=== PATIENT | male | born 1965 | race African-American/Black ===

== ENCOUNTER 2018-11-15 20:42 | Inpatient (IN) | payer MEDICAID ==
[~2018-11-15] VITALS: Ht 190.5 cm; Wt 156.2 kg
[~2018-11-15 20:42] MED LIST: amlodipine; furosemide; hydrochlorothiazide; metoprolol; potassium
[2018-11-16] MEDS ORDERED: NITROGLYCERIN OINT 1GM/INCH UDPKT TD ONE (01:00)
[2018-11-16] MEDS ORDERED: FUROSEMIDE 40MG/4ML VIAL IV ONE (01:00)
[2018-11-16] MEDS ORDERED: ASPIRIN 325MG EC TABLET PO ONE (01:00)
[2018-11-16 01:32] LABS: BASOPHILS % 0.9 % (0.0-2.0); EOSINOPHILS % 4.3 % (0.0-5.0); HEMATOCRIT. 36.2 % (42.0-52.0); LYMPHOCYTES % 24.7 % (20.0-50.0); MEAN CORPUSCULAR HEMOGLOBIN 27.1 pg (28.0-32.0); MEAN CORPUSCULAR VOLUME 81.6 fL (80.0-94.0); MEAN PLATELET VOLUME 8.7 fl (7.4-10.4); MONOCYTES % 6.2 % (2.0-8.0); NEUTROPHILS % 63.9 % (40.0-76.0); PLATELET 249 x1000/uL (130-400); RED BLOOD CELL COUNT 4.44 mill/uL (4.7-6.1); RED CELL DISTRIBUTION WIDTH 14.4 % (11.6-14.6)
[2018-11-16 01:38] LABS: CHLORIDE 105 mEq/L (98-107)
[2018-11-16 01:42] LABS: INR 1.1; PROTHROMBIN TIME 10.6 sec (9.1-11.1)
[2018-11-16] MEDS ORDERED: POTASSIUM CHLORIDE 20MEQ TABLET SR PO SCH (01:58)
[2018-11-16 04:00] VITALS: BP 128/73
[2018-11-16] MEDS: FUROSEMIDE 40MG/4ML VIAL IVP SCH ×3 (08:00→18:10)
[2018-11-16] MEDS ORDERED: MORPHINE SULFATE 4 MG/ML CPJ (NOT FOR IM USE) IV PRN (08:00)
[2018-11-16] MEDS ORDERED: ONDANSETRON HCL 4MG/2ML INJ IV PRN (08:00)
[2018-11-16] MEDS ORDERED: ACETAMINOPHEN 325MG TABLET PO PRN (08:00)
[2018-11-16] MEDS ORDERED: HYDRALAZINE 20MG/ML VIAL IV PRN (08:00)
[2018-11-16 08:36] VITALS: BP 148/91
[2018-11-16] MEDS ORDERED: AMLODIPINE 5MG TABLET PO SCH (09:00)
[2018-11-16] MEDS ORDERED: HYDROCODONE/ACETAMINOPHEN 5/325MG TABLET PO PRN ×2 (10:30→10:45)
[2018-11-16] MEDS: ASPIRIN 81MG TABLET PO SCH (11:03)
[2018-11-16 11:16] VITALS: BP 148/91
[2018-11-16] MEDS: LOSARTAN POTASSIUM 50 MG TABLET PO SCH (11:28)
[2018-11-16 12:14] LABS: LDL CHOLESTEROL 149 mg/dL (5-100)
[2018-11-16 12:16] LABS: CREATINE KINASE 192 IU/L (39-308); HDL CHOLESTEROL 42 mg/dL (40-59)
[2018-11-16 12:18] LABS: CREATINE KINASE MB FRACTION 1.6 ng/mL (0.5-3.6)
[2018-11-16] MEDS: DILTIAZEM HCL 60MG TABLET PO SCH ×3 (12:51→23:12)
[2018-11-16] MEDS: ENOXAPARIN 30MG/0.3ML SYR SUBCUT SCH ×2 (14:55→22:08)
[2018-11-16 15:00] LABS: CLARITY URINE CLEAR (CLEAR); COLOR URINE YELLOW (YELLOW); KETONES URINE NEGATIVE (NEGATIVE); LEUKOCYTE ESTERASE URINE NEGATIVE (NEGATIVE); NITRITE URINE NEGATIVE (NEGATIVE); OCCULT BLOOD URINE NEGATIVE (NEGATIVE); PROTEIN URINE NEGATIVE (NEGATIVE); SPECIFIC GRAVITY URINE 1.005 (1.005-1.030); UROBILINOGEN URINE 0.2 E.U./dL (0.2-1.0)
[2018-11-16 15:02] LABS: *AMPHETAMINES SCREEN URINE NEGATIVE (NEGATIVE); *BARBITURATES SCREEN URINE NEGATIVE (NEGATIVE); *BENZODIAZEPINES SCREEN URINE NEGATIVE (NEGATIVE); *COCAINE SCREEN URINE NEGATIVE (NEGATIVE); METHADONE URINE SCREEN NEGATIVE (NEGATIVE); OPIATES URINE SCREEN NEGATIVE (NEGATIVE)
[2018-11-16 15:03] LABS: CANNABINOID URINE SCREEN NEGATIVE (NEGATIVE); PHENCYCLIDINE URINE SCREEN NEGATIVE (NEGATIVE)
[2018-11-16] MEDS ORDERED: IBUP-2271 MT (15:15)
[2018-11-16] MEDS ORDERED: GARL1000 PO (15:15)
[2018-11-16] MEDS ORDERED: ASPI-1159 PO (15:15)
[2018-11-16] MEDS ORDERED: GARL10005 PO (15:15)
[2018-11-16] MEDS ORDERED: OMEP1CAP25 PO (15:15)
[2018-11-16] MEDS ORDERED: HYDR12.54 PO (15:15)
[2018-11-16] MEDS ORDERED: POTA8TAB4 PO (15:15)
[2018-11-16] MEDS ORDERED: LOSA-20 PO (15:15)
[2018-11-16] MEDS ORDERED: ATOR20TA65 PO (15:15)
[2018-11-16 16:00] VITALS: BP 149/83
[2018-11-16] MEDS ORDERED: INFLUENZA VIRUS VACCINE(AFLURIA) 0.5ML SYR IM ONE (16:30)
[2018-11-16] MEDS ORDERED: PNEUMOCOCCAL 23-VAL P-SAC VAC 0.5 ML IM ONE (18:00)
[2018-11-16] MEDS: OMEPRAZOLE 20MG CAPSULE EXTENDED RELEASE PO SCH (18:54)
[2018-11-16 20:00] VITALS: BP 146/88
[2018-11-16] MEDS ORDERED: ZOLPIDEM TARTRATE 5MG TABLET PO PRN (21:00)
[2018-11-17] VITALS: BP 149/89
[2018-11-17 04:00] VITALS: BP 128/73
[2018-11-17] MEDS: OMEPRAZOLE 20MG CAPSULE EXTENDED RELEASE PO SCH ×2 (06:06→16:27)
[2018-11-17] MEDS: DILTIAZEM HCL 60MG TABLET PO SCH (06:07)
[2018-11-17 06:15] LABS: BASOPHILS % 0.6 % (0.0-2.0); HEMATOCRIT. 34.6 % (42.0-52.0); HEMOGLOBIN. 11.5 g/dL (14.0-18.0); MEAN CORPUSCULAR HEMOGLOBIN 27.3 pg (28.0-32.0); MEAN CORPUSCULAR VOLUME 82.6 fL (80.0-94.0); MEAN PLATELET VOLUME 8.7 fl (7.4-10.4); NEUTROPHILS % 59.4 % (40.0-76.0); PLATELET 230 x1000/uL (130-400); RED CELL DISTRIBUTION WIDTH 14.9 % (11.6-14.6)
[2018-11-17] MEDS: FUROSEMIDE 40MG/4ML VIAL IVP SCH ×2 (06:36→16:28)
[2018-11-17 07:22] LABS: CHLORIDE 102 mEq/L (98-107)
[2018-11-17 08:02] VITALS: BP 141/84
[2018-11-17] MEDS ORDERED: POTASSIUM CHLORIDE 20MEQ TABLET SR PO SCH (09:00)
[2018-11-17] MEDS: LOSARTAN POTASSIUM 50 MG TABLET PO SCH (09:25)
[2018-11-17] MEDS: ASPIRIN 81MG TABLET PO SCH (09:26)
[2018-11-17] MEDS: ENOXAPARIN 30MG/0.3ML SYR SUBCUT SCH (09:27)
[2018-11-17] MEDS ORDERED: POTASSIUM CHLORIDE 20MEQ TABLET SR PO NR (10:15)
[2018-11-17 12:13] VITALS: BP 143/80
[2018-11-17] MEDS ORDERED: DILTIAZEM HCL 90MG TABLET PO SCH (14:00)
[2018-11-17] MEDS ORDERED: LIP40 PO (14:26)
[2018-11-17] MEDS ORDERED: DILT90TA2 PO ×2 (14:26→16:23)
[2018-11-17 16:19] VITALS: BP 139/72
[2018-11-17 16:41] VITALS: BP 139/72
[2018-11-17] MEDS ORDERED: ATORVASTATIN CALCIUM 40MG TABLET PO SCH (21:00)
== END 2018-11-17 18:30 | disposition home or self-care (01) | DRG 199 ==
LOC: ER 21:23 → 6WST 11-16 02:37 → EDBEDREQTM 11-16 02:39 → EDBEDREQ 11-16 02:39 → ENRESERV 11-16 07:30
PROVIDERS: ADMIT Internal Medicine; ATTEND Internal Medicine
DX: I16.0 Hypertensive urgency (principal); I50.41 Acute combined systolic (congestive) and diastolic (congestive) heart failure; E66.01 Morbid (severe) obesity due to excess calories; I24.8 Other forms of acute ischemic heart disease; Z68.41 Body mass index [BMI] 40.0-44.9, adult; E78.5 Hyperlipidemia, unspecified; D64.9 Anemia, unspecified; J45.909 Unspecified asthma, uncomplicated; R60.0 Localized edema; I10 Essential (primary) hypertension; E87.6 Hypokalemia; Z71.3 Dietary counseling and surveillance; I11.0 Hypertensive heart disease with heart failure
CPT/HCPCS: 36415; 71045; 80048; 80061; 80305; 82550; 82553; 83880; 84443; 84484; 90686; 90732; 93005; 93306; 93970; 96374; 99285; J1650; J1940

== ENCOUNTER 2019-10-04 11:32 | Inpatient (IN) | payer MEDICAID ==
[~2019-10-04] VITALS: Ht 193 cm; Wt 160.2 kg
[~2019-10-04 11:32] MED LIST changes: +ASPI-1497 PO; +DILT90TA2 PO; +GARL1000 PO; +LIP40 PO; +LOSA-20 PO; +OMEP1CAP25 PO; +POTA8TAB4 PO; -amlodipine; -furosemide; -hydrochlorothiazide; -metoprolol; -potassium
[2019-10-04] MEDS ORDERED: ASPIRIN 81MG TABLET PO ONE (12:30)
[2019-10-04] MEDS ORDERED: LABETALOL HCL 20MG/4ML CARPUJECT IV ONE (12:30)
[2019-10-04] MEDS ORDERED: LABETALOL 5MG/ML SYR 20 MG/4 ML SYRINGE IV ONE (12:45)
[2019-10-04 12:56] LABS: BASOPHILS % 0.5 % (0.0-2.0); CHLORIDE 105 mEq/L (98-107); EOSINOPHILS % 1.6 % (0.0-5.0); HEMATOCRIT. 32.6 % (42.0-52.0); HEMOGLOBIN. 10.8 g/dL (14.0-18.0); MEAN CORPUSCULAR HEMOGLOBIN 26.7 pg (28.0-32.0); MEAN CORPUSCULAR VOLUME 80.9 fL (80.0-94.0); MEAN PLATELET VOLUME 9.2 fl (7.4-10.4); MONOCYTES % 6.6 % (2.0-8.0); NEUTROPHILS % 77.3 % (40.0-76.0); PLATELET 222 x1000/uL (130-400); RED BLOOD CELL COUNT 4.02 mill/uL (4.7-6.1); RED CELL DISTRIBUTION WIDTH 15.3 % (11.6-14.6)
[2019-10-04] MEDS ORDERED: ACETAMINOPHEN 325MG TABLET PO ONE (13:15)
[2019-10-04] MEDS ORDERED: METOPROLOL TARTRATE 100MG TABLET PO ONE (15:45)
[2019-10-04] MEDS ORDERED: FUROSEMIDE 40MG/4ML VIAL IVP ONE (15:45)
[2019-10-04] MEDS ORDERED: CLONIDINE 0.1MG TABLET PO PRN (17:30)
[2019-10-04] MEDS: POTASSIUM CHLORIDE 20MEQ TABLET SR PO SCH (17:30)
[2019-10-04] MEDS ORDERED: DOCUSATE SODIUM 100MG CAPSULE PO PRN (17:30)
[2019-10-04] MEDS ORDERED: ACETAMINOPHEN 325MG TABLET PO PRN (17:30)
[2019-10-04] MEDS: ASPIRIN 81MG EC TABLET PO SCH (17:45)
[2019-10-04] MEDS ORDERED: POTASSIUM CHLORIDE INJ 40 MEQ in DEXT 5% WATER 250 ML IV NR (18:00)
[2019-10-04] MEDS ORDERED: ENOXAPARIN 40MG/0.4ML SYR SUBCUT NR (18:00)
[2019-10-04] MEDS ORDERED: DILTIAZEM HCL 120MG CAPSULE CD 24HR PO NR (18:30)
[2019-10-04] MEDS: HYDROCODONE/ACETAMINOPHEN 5/325MG TABLET PO PRN (18:56)
[2019-10-04 20:00] VITALS: BP 132/98
[2019-10-04 20:05] VITALS: BP 132/98
[2019-10-04] MEDS: MAGNESIUM/ALUMINUM HYDROXIDE/SIMETHICONE 30ML UDC PO PRN (20:40)
[2019-10-04] MEDS ORDERED: ZOLPIDEM TARTRATE 5MG TABLET PO PRN (21:00)
[2019-10-04] MEDS: AMOXICILLIN 500 MG CAPSULE PO SCH (21:43)
[2019-10-04] MEDS: ATORVASTATIN CALCIUM 40MG TABLET PO SCH (21:43)
[2019-10-04] MEDS ORDERED: ONDANSETRON HCL 4MG TABLET PO PRN (22:30)
[2019-10-04] MEDS: ONDANSETRON HCL 4MG/2ML INJ IV PRN (22:48)
[2019-10-05] VITALS: BP_SYST 117; BP_SYST 157; BP_DIAS 63; BP_DIAS 84
[2019-10-05 04:00] VITALS: BP 111/70
[2019-10-05 06:19] LABS: BASOPHILS % 0.6 % (0.0-2.0); EOSINOPHILS % 0.3 % (0.0-5.0); HEMATOCRIT. 30.7 % (42.0-52.0); HEMOGLOBIN. 10.3 g/dL (14.0-18.0); LYMPHOCYTES % 15.1 % (20.0-50.0); MEAN CORPUSCULAR HEMOGLOBIN 27.2 pg (28.0-32.0); MEAN CORPUSCULAR VOLUME 81.2 fL (80.0-94.0); MEAN PLATELET VOLUME 9.7 fl (7.4-10.4); MONOCYTES % 6.3 % (2.0-8.0); NEUTROPHILS % 77.7 % (40.0-76.0); PLATELET 215 x1000/uL (130-400); RED BLOOD CELL COUNT 3.79 mill/uL (4.7-6.1); RED CELL DISTRIBUTION WIDTH 15.1 % (11.6-14.6)
[2019-10-05] MEDS: AMOXICILLIN 500 MG CAPSULE PO SCH ×3 (06:33→21:01)
[2019-10-05] MEDS: MAGNESIUM/ALUMINUM HYDROXIDE/SIMETHICONE 30ML UDC PO PRN ×2 (06:40→17:11)
[2019-10-05 06:55] LABS: CHLORIDE 106 mEq/L (98-107)
[2019-10-05 07:00] LABS: PHOSPHORUS 5.2 mg/dL (2.5-4.9)
[2019-10-05 08:00] VITALS: BP 141/100
[2019-10-05] MEDS: IPRATROPIUM/ALBUTEROL 0.5-3(2.5)MG/3ML NEB HHN PRN ×3 (08:21→16:43)
[2019-10-05] MEDS ORDERED: ENOXAPARIN 40MG/0.4ML SYR SUBCUT SCH (09:00)
[2019-10-05] MEDS: ASPIRIN 81MG EC TABLET PO SCH (09:29)
[2019-10-05] MEDS: HYDROCODONE/ACETAMINOPHEN 5/325MG TABLET PO PRN (09:29)
[2019-10-05] MEDS: POTASSIUM CHLORIDE 20MEQ TABLET SR PO SCH (09:29)
[2019-10-05] MEDS: DILTIAZEM HCL 120MG CAPSULE CD 24HR PO SCH (09:30)
[2019-10-05] MEDS: PANTOPRAZOLE SODIUM 40 MG/VIAL IV SCH (09:31)
[2019-10-05 12:00] VITALS: BP 128/89
[2019-10-05] MEDS ORDERED: FUROSEMIDE 40MG/4ML VIAL IV SCH (12:45)
[2019-10-05] MEDS: LOSARTAN POTASSIUM 25 MG TABLET PO SCH (14:20)
[2019-10-05 16:00] VITALS: BP 137/99
[2019-10-05] MEDS: FUROSEMIDE 40MG/4ML VIAL IV SCH (17:11)
[2019-10-05] MEDS: ENOXAPARIN 150MG/ML SYR SUBCUT SCH (18:15)
[2019-10-05 18:19] LABS: PROTHROMBIN TIME 11.2 sec (9.6-11.0)
[2019-10-05 20:00] VITALS: BP 125/92
[2019-10-05] MEDS: ATORVASTATIN CALCIUM 40MG TABLET PO SCH (20:17)
[2019-10-05] MEDS: ONDANSETRON HCL 4MG/2ML INJ IV PRN (20:38)
[2019-10-05] MEDS: CARVEDILOL 6.25 MG TABLET PO SCH (21:03)
[2019-10-06] VITALS: BP 123/89
[2019-10-06] MEDS: IPRATROPIUM/ALBUTEROL 0.5-3(2.5)MG/3ML NEB HHN PRN ×2 (01:06→13:53)
[2019-10-06 04:00] VITALS: BP 118/81
[2019-10-06] MEDS: AMOXICILLIN 500 MG CAPSULE PO SCH ×2 (06:11→14:22)
[2019-10-06] MEDS: ENOXAPARIN 150MG/ML SYR SUBCUT SCH ×2 (06:12→17:43)
[2019-10-06] MEDS: FUROSEMIDE 40MG/4ML VIAL IV SCH ×2 (06:15→17:20)
[2019-10-06] MEDS: MAGNESIUM/ALUMINUM HYDROXIDE/SIMETHICONE 30ML UDC PO PRN (07:16)
[2019-10-06 07:20] LABS: BASOPHILS % 0.5 % (0.0-2.0); HEMATOCRIT. 31.1 % (42.0-52.0); HEMOGLOBIN. 10.2 g/dL (14.0-18.0); LYMPHOCYTES % 19.4 % (20.0-50.0); MEAN CORPUSCULAR HEMOGLOBIN 26.8 pg (28.0-32.0); MEAN CORPUSCULAR VOLUME 81.4 fL (80.0-94.0); MEAN PLATELET VOLUME 9.5 fl (7.4-10.4); NEUTROPHILS % 70.1 % (40.0-76.0); PLATELET 220 x1000/uL (130-400); RED BLOOD CELL COUNT 3.82 mill/uL (4.7-6.1); RED CELL DISTRIBUTION WIDTH 15.3 % (11.6-14.6)
[2019-10-06 08:00] VITALS: BP 137/99
[2019-10-06 08:00] LABS: CHLORIDE 103 mEq/L (98-107)
[2019-10-06] MEDS ORDERED: FUROSEMIDE 40MG/4ML VIAL IV SCH (09:00)
[2019-10-06] MEDS: PANTOPRAZOLE SODIUM 40 MG/VIAL IV SCH (09:08)
[2019-10-06] MEDS: POTASSIUM CHLORIDE 20MEQ TABLET SR PO SCH (09:09)
[2019-10-06] MEDS: CARVEDILOL 6.25 MG TABLET PO SCH (09:09)
[2019-10-06] MEDS: ASPIRIN 81MG EC TABLET PO SCH (09:09)
[2019-10-06] MEDS: LOSARTAN POTASSIUM 25 MG TABLET PO SCH (09:09)
[2019-10-06] MEDS: DILTIAZEM HCL 120MG CAPSULE CD 24HR PO SCH (09:10)
[2019-10-06 12:00] VITALS: BP 140/82
[2019-10-06] MEDS ORDERED: FURO-151 MT (12:44)
[2019-10-06] MEDS ORDERED: POTA20TA82 MT (12:44)
[2019-10-06] MEDS ORDERED: CARV12.545 MT (12:44)
[2019-10-06] MEDS ORDERED: APIX5TAB MT (12:44)
[2019-10-06 15:02] VITALS: BP 140/82
[2019-10-06 16:00] VITALS: BP 122/96
[2019-10-07] MEDS ORDERED: FAMOTIDINE 20MG TABLET PO SCH (09:00)
== END 2019-10-06 19:40 | disposition home or self-care (01) | DRG 201 ==
LOC: ER 11:32 → 7WST 15:34 → EDBEDREQ 15:37 → ENRESERV 19:03
PROVIDERS: ADMIT Internal Medicine; ATTEND Internal Medicine
DX: I48.91 Unspecified atrial fibrillation (principal); J96.00 Acute respiratory failure, unspecified whether with hypoxia or hypercapnia; I50.23 Acute on chronic systolic (congestive) heart failure; E46 Unspecified protein-calorie malnutrition; I42.9 Cardiomyopathy, unspecified; Z68.41 Body mass index [BMI] 40.0-44.9, adult; K92.1 Melena; D64.9 Anemia, unspecified; E66.9 Obesity, unspecified; F12.10 Cannabis abuse, uncomplicated; F17.200 Nicotine dependence, unspecified, uncomplicated; I11.0 Hypertensive heart disease with heart failure; E78.5 Hyperlipidemia, unspecified; E87.6 Hypokalemia; J45.909 Unspecified asthma, uncomplicated; K04.7 Periapical abscess without sinus; Z82.49 Family history of ischemic heart disease and other diseases of the circulatory system; Z87.01 Personal history of pneumonia (recurrent); Z79.82 Long term (current) use of aspirin; Z79.899 Other long term (current) drug therapy; Z71.3 Dietary counseling and surveillance; Z71.6 Tobacco abuse counseling
CPT/HCPCS: 36415; 71045; 80048; 80053; 80061; 83036; 83735; 83880; 84100; 84145; 84443; 84484; 85025; 87804; 93005; 93306; 93970; 94640; 99285; C9113; J1650; J1940; J2405; J3480; J3490; J7060

== ENCOUNTER 2019-10-24 07:37 | Inpatient (IN) | payer MEDICAID ==
[~2019-10-24] VITALS: Ht 185.4 cm; Wt 171.5 kg
[~2019-10-24 07:37] MED LIST changes: +APIX5TAB MT; +CARV12.545 MT; +FURO-151 MT; +POTA20TA82 MT; -POTA8TAB4 PO
[2019-10-24] MEDS ORDERED: MORPHINE SULFATE 4 MG/ML CPJ (NOT FOR IM USE) IV STA (08:47)
[2019-10-24 09:09] LABS: BASOPHILS % 0.6 % (0.0-2.0); EOSINOPHILS % 1.9 % (0.0-5.0); HEMATOCRIT. 30.7 % (42.0-52.0); HEMOGLOBIN. 10.2 g/dL (14.0-18.0); LYMPHOCYTES % 15.4 % (20.0-50.0); MEAN CORPUSCULAR VOLUME 81.6 fL (80.0-94.0); MONOCYTES % 6.6 % (2.0-8.0); NEUTROPHILS % 75.5 % (40.0-76.0); PLATELET 226 x1000/uL (130-400); RED BLOOD CELL COUNT 3.76 mill/uL (4.7-6.1); RED CELL DISTRIBUTION WIDTH 15.7 % (11.6-14.6)
[2019-10-24 09:16] LABS: CHLORIDE 106 mEq/L (98-107)
[2019-10-24 09:18] LABS: INR 1.1
[2019-10-24] MEDS ORDERED: ALBUTEROL (0.083%) 2.5MG/3ML NEB HHN STA (10:36)
[2019-10-24 10:41] LABS: CLARITY URINE CLEAR (CLEAR); COLOR URINE YELLOW (YELLOW); KETONES URINE NEGATIVE (NEGATIVE); LEUKOCYTE ESTERASE URINE NEGATIVE (NEGATIVE); NITRITE URINE NEGATIVE (NEGATIVE); OCCULT BLOOD URINE NEGATIVE (NEGATIVE); PH URINE 5.5 (4.5-8.0); PROTEIN URINE 2+ (NEGATIVE); SPECIFIC GRAVITY URINE 1.023 (1.005-1.030); UROBILINOGEN URINE 0.2 E.U./dL (0.2-1.0)
[2019-10-24] MEDS ORDERED: KETOROLAC 30MG/ML VIAL IV ONE (10:45)
[2019-10-24] MEDS ORDERED: HYDRALAZINE 20MG/ML VIAL IV ONE (11:15)
[2019-10-24] MEDS ORDERED: ONDANSETRON HCL 4MG/2ML INJ IV ONE (12:30)
[2019-10-24] MEDS ORDERED: CLONIDINE 0.1MG TABLET PO PRN (13:00)
[2019-10-24] MEDS ORDERED: ONDANSETRON HCL 4MG/2ML INJ IV PRN ×2 (13:00→15:15)
[2019-10-24 13:19] LABS: PHOSPHORUS 3.8 mg/dL (2.5-4.9)
[2019-10-24] MEDS ORDERED: BISACODYL 10MG SUPP PR PRN (15:15)
[2019-10-24] MEDS ORDERED: SORBITOL 70% SOLN 30ML PO PRN (15:15)
[2019-10-24] MEDS ORDERED: SUCRALFATE 1 G/10 ML UDC PO NR (17:15)
[2019-10-24 23:21] VITALS: BP 123/88
[2019-10-24 23:25] VITALS: BP 123/88
[2019-10-25] MEDS ORDERED: MAGNESIUM/ALUMINUM HYDROXIDE/SIMETHICONE 30ML UDC PO PRN (00:15)
[2019-10-25] MEDS ORDERED: HYDROCODONE/ACETAMINOPHEN 5/325MG TABLET PO PRN (00:15)
[2019-10-25] MEDS: IPRATROPIUM/ALBUTEROL 0.5-3(2.5)MG/3ML NEB HHN PRN (05:43)
[2019-10-25 06:25] LABS: CHLORIDE 103 mEq/L (98-107)
[2019-10-25 06:31] LABS: PHOSPHORUS 4.7 mg/dL (2.5-4.9)
[2019-10-25 06:32] LABS: LDL CHOLESTEROL 84 mg/dL (5-100)
[2019-10-25 06:33] LABS: CREATINE KINASE 83 IU/L (39-308); HDL CHOLESTEROL 32 mg/dL (40-59)
[2019-10-25 06:48] LABS: BASOPHILS % 0.6 % (0.0-2.0); EOSINOPHILS % 3.4 % (0.0-5.0); HEMATOCRIT. 29.1 % (42.0-52.0); HEMOGLOBIN. 9.5 g/dL (14.0-18.0); LYMPHOCYTES % 25.7 % (20.0-50.0); MEAN CORPUSCULAR HEMOGLOBIN 26.9 pg (28.0-32.0); MEAN PLATELET VOLUME 9.3 fl (7.4-10.4); MONOCYTES % 6.5 % (2.0-8.0); NEUTROPHILS % 63.8 % (40.0-76.0); PLATELET 204 x1000/uL (130-400); RED BLOOD CELL COUNT 3.55 mill/uL (4.7-6.1); RED CELL DISTRIBUTION WIDTH 15.4 % (11.6-14.6)
[2019-10-25 08:00] VITALS: BP 141/88
[2019-10-25] MEDS ORDERED: POTASSIUM CHLORIDE 20MEQ TABLET SR PO SCH (08:00)
[2019-10-25] MEDS: SUCRALFATE 1 G/10 ML UDC PO SCH ×4 (09:58→21:27)
[2019-10-25] MEDS: BISACODYL 5MG TABLET PO SCH (09:59)
[2019-10-25] MEDS: DILTIAZEM HCL 30MG TABLET PO SCH ×3 (09:59→22:00)
[2019-10-25] MEDS: PANTOPRAZOLE SODIUM 40 MG/VIAL IV SCH (10:00)
[2019-10-25] MEDS: CARVEDILOL 3.125 MG TABLET PO SCH ×2 (10:00→21:28)
[2019-10-25 12:00] VITALS: BP 115/94
[2019-10-25 16:00] VITALS: BP 114/83
[2019-10-25] MEDS ORDERED: BISACODYL 10MG SUPP PR PRN (16:45)
[2019-10-25] MEDS ORDERED: MINERAL OIL ENEMA 133ML PR PRN (16:45)
[2019-10-25] MEDS ORDERED: SORBITOL 70% SOLN 30ML PO NR (16:45)
[2019-10-25] MEDS: POLYETHYLENE GLYCOL 3350 (17GM) 1 DOSE PACK PO SCH (17:22)
[2019-10-25 20:00] VITALS: BP 103/68
[2019-10-25] MEDS: ATORVASTATIN CALCIUM 40MG TABLET PO SCH (21:27)
[2019-10-26 00:05] VITALS: BP 136/94
[2019-10-26 04:00] VITALS: BP 134/99
[2019-10-26] MEDS: IPRATROPIUM/ALBUTEROL 0.5-3(2.5)MG/3ML NEB HHN PRN (05:07)
[2019-10-26] MEDS: DILTIAZEM HCL 30MG TABLET PO SCH ×3 (05:22→21:33)
[2019-10-26 07:43] VITALS: BP 127/100
[2019-10-26] MEDS: POLYETHYLENE GLYCOL 3350 (17GM) 1 DOSE PACK PO SCH (08:35)
[2019-10-26] MEDS: CARVEDILOL 3.125 MG TABLET PO SCH ×2 (08:36→21:33)
[2019-10-26] MEDS: SUCRALFATE 1 G/10 ML UDC PO SCH ×4 (08:36→21:33)
[2019-10-26] MEDS: PANTOPRAZOLE SODIUM 40 MG/VIAL IV SCH (08:37)
[2019-10-26] MEDS: BISACODYL 5MG TABLET PO SCH (08:37)
[2019-10-26 10:03] LABS: EOSINOPHILS % 2.7 % (0.0-5.0); HEMATOCRIT. 30.3 % (42.0-52.0); LYMPHOCYTES % 18.9 % (20.0-50.0); MEAN CORPUSCULAR HEMOGLOBIN 27.1 pg (28.0-32.0); MEAN CORPUSCULAR VOLUME 82.1 fL (80.0-94.0); MEAN PLATELET VOLUME 9.1 fl (7.4-10.4); MONOCYTES % 7.3 % (2.0-8.0); NEUTROPHILS % 70.1 % (40.0-76.0); PLATELET 206 x1000/uL (130-400); RED BLOOD CELL COUNT 3.69 mill/uL (4.7-6.1); RED CELL DISTRIBUTION WIDTH 15.5 % (11.6-14.6)
[2019-10-26 10:13] LABS: CHLORIDE 106 mEq/L (98-107)
[2019-10-26 10:19] LABS: PHOSPHORUS 3.2 mg/dL (2.5-4.9)
[2019-10-26] MEDS ORDERED: POTASSIUM CHLORIDE 20MEQ TABLET SR PO NR (10:45)
[2019-10-26 12:00] VITALS: BP 137/95
[2019-10-26] MEDS: FUROSEMIDE 40MG TABLET PO SCH (13:30)
[2019-10-26 16:00] VITALS: BP 147/103
[2019-10-26] MEDS ORDERED: FENTANYL CITRATE/PF 50MCG/ML 2ML VIAL IV PRN (16:58)
[2019-10-26] MEDS ORDERED: MIDAZOLAM HCL 5 MG/5 ML VIAL ONE (16:58)
[2019-10-26] MEDS ORDERED: DIAZEPAM 5 MG/ML 2ML CPJ ONE (16:59)
[2019-10-26] MEDS ORDERED: MIDAZOLAM HCL 5 MG/5 ML VIAL IV PRN (16:59)
[2019-10-26] MEDS ORDERED: FENTANYL CITRATE/PF 50MCG/ML 2ML VIAL ONE (16:59)
[2019-10-26] MEDS ORDERED: DIAZEPAM 5 MG/ML 2ML CPJ IV PRN (17:05)
[2019-10-26 20:00] VITALS: BP 151/104
[2019-10-26] MEDS: HYDRALAZINE HCL 25MG TABLET PO SCH (21:32)
[2019-10-26] MEDS: ATORVASTATIN CALCIUM 40MG TABLET PO SCH (21:32)
[2019-10-27] VITALS: BP 131/78
[2019-10-27 04:00] VITALS: BP 124/87
[2019-10-27] MEDS: DILTIAZEM HCL 30MG TABLET PO SCH (06:07)
[2019-10-27 07:10] LABS: BASOPHILS % 0.5 % (0.0-2.0); EOSINOPHILS % 5.1 % (0.0-5.0); HEMATOCRIT. 31.1 % (42.0-52.0); HEMOGLOBIN. 10.4 g/dL (14.0-18.0); LYMPHOCYTES % 20.1 % (20.0-50.0); MEAN CORPUSCULAR HEMOGLOBIN 27.1 pg (28.0-32.0); MEAN CORPUSCULAR VOLUME 81.2 fL (80.0-94.0); MEAN PLATELET VOLUME 9.1 fl (7.4-10.4); MONOCYTES % 7.5 % (2.0-8.0); NEUTROPHILS % 66.8 % (40.0-76.0); PLATELET 218 x1000/uL (130-400); RED BLOOD CELL COUNT 3.83 mill/uL (4.7-6.1); RED CELL DISTRIBUTION WIDTH 15.4 % (11.6-14.6)
[2019-10-27 07:44] LABS: CHLORIDE 106 mEq/L (98-107)
[2019-10-27 07:55] LABS: PHOSPHORUS 4.5 mg/dL (2.5-4.9)
[2019-10-27 08:00] VITALS: BP 144/92
[2019-10-27] MEDS: CARVEDILOL 3.125 MG TABLET PO SCH (08:44)
[2019-10-27] MEDS: HYDRALAZINE HCL 25MG TABLET PO SCH (08:44)
[2019-10-27] MEDS: BISACODYL 5MG TABLET PO SCH (08:44)
[2019-10-27] MEDS: FUROSEMIDE 40MG TABLET PO SCH (08:44)
[2019-10-27] MEDS: SUCRALFATE 1 G/10 ML UDC PO SCH ×2 (08:45→12:40)
[2019-10-27] MEDS: POLYETHYLENE GLYCOL 3350 (17GM) 1 DOSE PACK PO SCH (08:45)
[2019-10-27] MEDS: PANTOPRAZOLE SODIUM 40 MG/VIAL IV SCH (09:35)
[2019-10-27] MEDS ORDERED: SUCR1ORA15 PO (09:59)
[2019-10-27] MEDS ORDERED: PANT40TA4 MT (09:59)
[2019-10-27 13:08] LABS: A/G RATIO 0.9 (0.7-1.7); ALBUMIN 2.8 g/dL (2.9-4.4); ALPHA-1-GLOBULIN 0.2 g/dL (0.0-0.4); ALPHA-2-GLOBULIN 0.7 g/dL (0.4-1.0); BETA GLOBULIN 1.2 g/dL (0.7-1.3); GLOBULIN TOTAL 3.2 g/dL (2.2-3.9); M-SPIKE Not Observed g/dL (Not Observed)
[2019-10-27] MEDS ORDERED: CARVEDILOL 6.25 MG TABLET PO SCH (21:00)
== END 2019-10-27 13:50 | disposition home or self-care (01) | DRG 241 ==
LOC: ER 07:44 → 7WST 12:18 → ENRESERV 22:04
PROVIDERS: ADMIT Internal Medicine; ATTEND Internal Medicine
PROC: 0DB68ZX Excision of Stomach, Via Natural or Artificial Opening Endoscopic, Diagnostic (ICD-10-PCS; principal; 2019-10-26)
DX: K25.4 Chronic or unspecified gastric ulcer with hemorrhage (principal); I50.23 Acute on chronic systolic (congestive) heart failure; N17.9 Acute kidney failure, unspecified; E11.22 Type 2 diabetes mellitus with diabetic chronic kidney disease; I13.0 Hypertensive heart and chronic kidney disease with heart failure and stage 1 through stage 4 chronic kidney disease, or unspecified chronic kidney disease; Z68.41 Body mass index [BMI] 40.0-44.9, adult; I48.20 Chronic atrial fibrillation, unspecified; K59.00 Constipation, unspecified; D50.9 Iron deficiency anemia, unspecified; E66.9 Obesity, unspecified; E87.6 Hypokalemia; J44.9 Chronic obstructive pulmonary disease, unspecified; K92.1 Melena; K57.30 Diverticulosis of large intestine without perforation or abscess without bleeding; K76.89 Other specified diseases of liver; N18.9 Chronic kidney disease, unspecified; D63.8 Anemia in other chronic diseases classified elsewhere; E78.5 Hyperlipidemia, unspecified; I25.10 Atherosclerotic heart disease of native coronary artery without angina pectoris; I34.0 Nonrheumatic mitral (valve) insufficiency; Z79.82 Long term (current) use of aspirin; Z79.01 Long term (current) use of anticoagulants; Z87.11 Personal history of peptic ulcer disease; Z79.899 Other long term (current) drug therapy; Z87.01 Personal history of pneumonia (recurrent)
CPT/HCPCS: 36415; 71045; 74176; 80048; 80053; 80061; 81003; 82270; 82550; 82570; 83735; 83935; 84100; 84155; 84165; 84300; 84443; 84484; 85025; 86850; 86900; 88305; 88313; 93005; 93970; 94640; 99285; C9113; J0360; J1885; J2250; J2270; J2405; J3010

== ENCOUNTER 2019-11-10 12:14 | Inpatient (IN) | payer MEDICAID ==
[2019-11-10] VITALS (23 sets, daily range): BP systolic 71–188; BP diastolic 20–130
[~2019-11-10] VITALS: Ht 182.9 cm; Wt 160.3 kg
[~2019-11-10 12:14] MED LIST changes: -ASPI-1497 PO; -CARV12.545 MT; -DILT90TA2 PO; -GARL1000 PO; -OMEP1CAP25 PO; +PANT40TA4 MT; +SUCR1ORA15 PO
[2019-11-10 13:49] LABS: CHLORIDE 101 mEq/L (98-107)
[2019-11-10 13:50] LABS: BASOPHILS % 0.6 % (0.0-2.0); EOSINOPHILS % 1.3 % (0.0-5.0); HEMATOCRIT. 29.8 % (42.0-52.0); HEMOGLOBIN. 9.7 g/dL (14.0-18.0); INR 1.3; LYMPHOCYTES % 19.6 % (20.0-50.0); MEAN CORPUSCULAR HEMOGLOBIN 26.2 pg (28.0-32.0); MEAN CORPUSCULAR VOLUME 80.2 fL (80.0-94.0); MEAN PLATELET VOLUME 9.4 fl (7.4-10.4); MONOCYTES % 7.9 % (2.0-8.0); NEUTROPHILS % 70.6 % (40.0-76.0); PLATELET 220 x1000/uL (130-400); PROTHROMBIN TIME 14.1 sec (9.6-11.0); RED BLOOD CELL COUNT 3.71 mill/uL (4.7-6.1); RED CELL DISTRIBUTION WIDTH 15.6 % (11.6-14.6)
[2019-11-10] MEDS ORDERED: FUROSEMIDE 40MG/4ML VIAL IVP ONE (15:15)
[2019-11-10] MEDS ORDERED: ASPIRIN 81MG TABLET PO ONE (15:15)
[2019-11-10] MEDS ORDERED: DILTIAZEM HCL 5MG/ML 5ML VIAL IV ONE (15:30)
[2019-11-10] MEDS ORDERED: ONDANSETRON HCL 4MG/2ML INJ IV STA (16:36)
[2019-11-10] MEDS ORDERED: MORPHINE SULFATE 4 MG/ML CPJ (NOT FOR IM USE) IV STA (16:36)
[2019-11-10] MEDS ORDERED: MORPHINE SULFATE 2 MG/ML CPJ (NOT FOR IM USE) IV PRN (16:45)
[2019-11-10] MEDS ORDERED: AMIODARONE HCL 50MG/ML 3ML VIAL IV ONE (16:46)
[2019-11-10] MEDS ORDERED: MAGNESIUM SULFATE 4G IN WATER 100ML PREMIX IV ONE (16:46)
[2019-11-10] MEDS ORDERED: ETOMIDATE 2MG/ML 10ML VIAL IV ONE (16:54)
[2019-11-10] MEDS ORDERED: SUCCINYLCHOLINE CHLORIDE 200MG/10ML IV ONE (16:54)
[2019-11-10] MEDS ORDERED: MIDAZOLAM HCL 50 MG in DEXTROSE 5% WATER 40 ML IV NR (17:07)
[2019-11-10] MEDS ORDERED: AMIODARONE HCL 900 MG in DEXT 5% WATER 482 ML IV PRN ×2 (17:08→17:15)
[2019-11-10] MEDS ORDERED: MIDAZOLAM HCL 50 MG in DEXTROSE 5% WATER 40 ML IV ONE (17:15)
[2019-11-10] MEDS ORDERED: MIDAZOLAM HCL 2 MG/2 ML VIAL IV ONE (17:15)
[2019-11-10] MEDS ORDERED: MAGNESIUM 2 G PREMIX 50 ML IV ONE (17:15)
[2019-11-10 17:41] LABS: BG BASE EXCESS -3.3 mmol/L (-2.0-2.0); BG CARBOXYHEMOGLOBIN 0.1 % (0.5-1.5); BG DEOXYHEMOGLOBIN 0.9 % (0.0-5.0); BG HCO3 ACT 22.8 mmol/L (22.0-26.0); BG METHEMOGLOBIN 0.2 % (0.0-1.5); BG OXYGEN SATURATION 99.1 % (92.0-98.5); BG OXYHEMOGLOBIN 98.8 % (94.0-97.0); BG PCO2 46.2 mmHg (35.0-45.0); BG PH 7.312 (7.350-7.450); BG PO2 223.9 mmHg (75.0-100.0); BG SAMPLE SITE RIGHT RADIAL; BG TIDAL VOLUME(mL) 600 mL; BG VENT MODE VENT - A/C; BG VENT RATE 18 set
[2019-11-10] MEDS ORDERED: DILTIAZEM HCL 60MG TABLET PO SCH (19:00)
[2019-11-10 19:09] LABS: CLARITY URINE CLOUDY (CLEAR); COLOR URINE YELLOW (YELLOW); KETONES URINE NEGATIVE (NEGATIVE); LEUKOCYTE ESTERASE URINE NEGATIVE (NEGATIVE); NITRITE URINE NEGATIVE (NEGATIVE); OCCULT BLOOD URINE 2+ (NEGATIVE); PH URINE 6.5 (4.5-8.0); PROTEIN URINE 4+ (NEGATIVE); SPECIFIC GRAVITY URINE 1.013 (1.005-1.030); UROBILINOGEN URINE 0.2 E.U./dL (0.2-1.0)
[2019-11-10] MEDS: PROPOFOL 10MG/ML 100ML 100 ML IV PRN ×2 (19:56→23:29)
[2019-11-10 19:58] LABS: *BARBITURATES SCREEN URINE NEGATIVE (NEGATIVE)
[2019-11-10 19:59] LABS: *AMPHETAMINES SCREEN URINE NEGATIVE (NEGATIVE); *BENZODIAZEPINES SCREEN URINE NEGATIVE (NEGATIVE); *COCAINE SCREEN URINE NEGATIVE (NEGATIVE); METHADONE URINE SCREEN NEGATIVE (NEGATIVE); OPIATES URINE SCREEN NEGATIVE (NEGATIVE); PHENCYCLIDINE URINE SCREEN NEGATIVE (NEGATIVE)
[2019-11-10 20:00] LABS: CANNABINOID URINE SCREEN NEGATIVE (NEGATIVE)
[2019-11-10] MEDS: IPRATROPIUM BROMIDE (0.02%) 0.5MG/2.5ML NEB HHN SCH (20:06)
[2019-11-10] MEDS ORDERED: CARVEDILOL 6.25 MG TABLET PO SCH (21:00)
[2019-11-10 21:37] LABS: CHLORIDE 100 mEq/L (98-107)
[2019-11-10 21:38] LABS: HEMATOCRIT. 27.9 % (42.0-52.0); MEAN CORPUSCULAR VOLUME 80.2 fL (80.0-94.0); MEAN PLATELET VOLUME 9.7 fl (7.4-10.4); PLATELET 199 x1000/uL (130-400); RED BLOOD CELL COUNT 3.48 mill/uL (4.7-6.1); RED CELL DISTRIBUTION WIDTH 15.4 % (11.6-14.6)
[2019-11-10 22:09] LABS: PLATELET ESTIMATE NORMAL
[2019-11-10] MEDS ORDERED: METO-385 MT (22:12)
[2019-11-10] MEDS ORDERED: SODIUM CHLORIDE 0.9% 250 ML IV ONE (22:15)
[2019-11-10] MEDS ORDERED: POTASSIUM CHLORIDE 20MEQ TABLET SR PO NR (22:21)
[2019-11-11] VITALS (103 sets, daily range): BP systolic 38–126; BP diastolic 22–91
[2019-11-11] MEDS: FENTANYL CITRATE/PF 500 MCG in SODIUM CHLORIDE 0.9% 40 ML IV PRN ×2 (00:07→13:24)
[2019-11-11] MEDS: PHENYLEPHRINE 80 MG in DEXT 5% WATER 492 ML IV PRN ×3 (00:46→18:37)
[2019-11-11] MEDS: IPRATROPIUM BROMIDE (0.02%) 0.5MG/2.5ML NEB HHN SCH ×4 (01:40→20:12)
[2019-11-11] MEDS: ACETAMINOPHEN 325MG TABLET PO PRN (05:49)
[2019-11-11 06:00] LABS: BASOPHILS % 0.4 % (0.0-2.0); EOSINOPHILS % 0.1 % (0.0-5.0); HEMATOCRIT. 32.9 % (42.0-52.0); HEMOGLOBIN. 10.4 g/dL (14.0-18.0); LYMPHOCYTES % 8.7 % (20.0-50.0); MEAN CORPUSCULAR VOLUME 81.9 fL (80.0-94.0); MEAN PLATELET VOLUME 9.8 fl (7.4-10.4); MONOCYTES % 10.4 % (2.0-8.0); NEUTROPHILS % 80.4 % (40.0-76.0); PLATELET 246 x1000/uL (130-400); RED BLOOD CELL COUNT 4.02 mill/uL (4.7-6.1); RED CELL DISTRIBUTION WIDTH 16.1 % (11.6-14.6)
[2019-11-11] MEDS: PANTOPRAZOLE SODIUM 40 MG/VIAL IV SCH (08:33)
[2019-11-11] MEDS: PROPOFOL 10MG/ML 100ML 100 ML IV PRN ×3 (08:34→21:27)
[2019-11-11] MEDS ORDERED: LIDOCAINE HCL 1% 20ML VIAL (Pyxis) INJ ONE (08:43)
[2019-11-11 08:44] LABS: BG BASE EXCESS -4.4 mmol/L (-2.0-2.0); BG CARBOXYHEMOGLOBIN 0.3 % (0.5-1.5); BG DEOXYHEMOGLOBIN 1.9 % (0.0-5.0); BG FRACTION INSPIRED OXYGEN 50; BG HCO3 ACT 17.7 mmol/L (22.0-26.0); BG METHEMOGLOBIN 0.3 % (0.0-1.5); BG OXYGEN SATURATION 98.1 % (92.0-98.5); BG OXYHEMOGLOBIN 97.5 % (94.0-97.0); BG PCO2 24.7 mmHg (35.0-45.0); BG PH 7.473 (7.350-7.450); BG PO2 117.4 mmHg (75.0-100.0); BG SAMPLE SITE RIGHT RADIAL; BG TIDAL VOLUME(mL) 600 mL; BG TOTAL HEMOGLOBIN 11.9 g/dL (12.0-18.0); BG VENT MODE VENT - A/C; BG VENT RATE 16 set
[2019-11-11] MEDS ORDERED: PIPERACILLIN/TAZOBACTAM 3.375 G in DEXT 5% WATER 100 ML IV SCH (11:15)
[2019-11-11] MEDS ORDERED: AMIODARONE HCL 150 MG in DEXT 5% WATER 100 ML IV NR (13:00)
[2019-11-11] MEDS: SUCRALFATE 1G TABLET PO SCH ×3 (13:05→21:32)
[2019-11-11] MEDS: PIPERACILLIN/TAZOBACTAM 2.25 G in DEXTROSE 5% WATER 50 ML IV SCH ×2 (13:05→17:01)
[2019-11-11] MEDS: VASOPRESSIN 10 UNIT in SODIUM CHLORIDE 0.9% 99.5 ML IV PRN ×3 (13:54→22:16)
[2019-11-11] MEDS: AMIODARONE HCL 900 MG in DEXT 5% WATER 482 ML IV PRN ×3 (14:21)
[2019-11-11] MEDS ORDERED: NOREPINEPHRINE 32 MG in DEXT 5% WATER 468 ML IV PRN (15:00)
[2019-11-12] VITALS (93 sets, daily range): BP systolic 44–171; BP diastolic 16–120
[2019-11-12] MEDS: PIPERACILLIN/TAZOBACTAM 2.25 G in DEXTROSE 5% WATER 50 ML IV SCH ×4 (00:10→19:02)
[2019-11-12] MEDS: IPRATROPIUM BROMIDE (0.02%) 0.5MG/2.5ML NEB HHN SCH ×4 (02:12→20:21)
[2019-11-12] MEDS: VASOPRESSIN 10 UNIT in SODIUM CHLORIDE 0.9% 99.5 ML IV PRN ×4 (02:31→15:02)
[2019-11-12] MEDS: PHENYLEPHRINE 80 MG in DEXT 5% WATER 492 ML IV PRN ×2 (03:39→09:51)
[2019-11-12] MEDS: FENTANYL CITRATE/PF 500 MCG in SODIUM CHLORIDE 0.9% 40 ML IV PRN ×2 (03:41→21:39)
[2019-11-12 05:34] LABS: BG BASE EXCESS -13.3 mmol/L (-2.0-2.0); BG CARBOXYHEMOGLOBIN 0.3 % (0.5-1.5); BG FRACTION INSPIRED OXYGEN 50; BG HCO3 ACT 12.4 mmol/L (22.0-26.0); BG METHEMOGLOBIN 0.4 % (0.0-1.5); BG OXYHEMOGLOBIN 95.3 % (94.0-97.0); BG PCO2 28.5 mmHg (35.0-45.0); BG PH 7.257 (7.350-7.450); BG PO2 98.7 mmHg (75.0-100.0); BG SAMPLE SITE RIGHT FEMORAL; BG TIDAL VOLUME(mL) 600 mL; BG TOTAL HEMOGLOBIN 11.4 g/dL (12.0-18.0); BG VENT MODE VENT - A/C; BG VENT RATE 16 set
[2019-11-12 05:45] LABS: HEMATOCRIT. 32.1 % (42.0-52.0); HEMOGLOBIN. 9.8 g/dL (14.0-18.0); MEAN CORPUSCULAR VOLUME 85.2 fL (80.0-94.0); MEAN PLATELET VOLUME 10.4 fl (7.4-10.4); PLATELET 203 x1000/uL (130-400); RED BLOOD CELL COUNT 3.76 mill/uL (4.7-6.1); RED CELL DISTRIBUTION WIDTH 16.8 % (11.6-14.6)
[2019-11-12] MEDS ORDERED: SODIUM BICARBONATE 8.4% 1 MEQ/ML 50ML SYR IV SCH ×3 (05:45→10:00)
[2019-11-12] MEDS: SUCRALFATE 1G TABLET PO SCH ×4 (08:24→21:28)
[2019-11-12] MEDS: PANTOPRAZOLE SODIUM 40 MG/VIAL IV SCH (08:24)
[2019-11-12 08:48] LABS: NUCLEATED RED BLOOD CELLS 1 /100 WBC; PLATELET ESTIMATE NORMAL
[2019-11-12 09:02] LABS: BG BASE EXCESS -13.6 mmol/L (-2.0-2.0); BG CARBOXYHEMOGLOBIN 0.6 % (0.5-1.5); BG FRACTION INSPIRED OXYGEN 50; BG HCO3 ACT 13.3 mmol/L (22.0-26.0); BG METHEMOGLOBIN 0.2 % (0.0-1.5); BG OXYHEMOGLOBIN 94.2 % (94.0-97.0); BG PCO2 34.3 mmHg (35.0-45.0); BG PH 7.205 (7.350-7.450); BG PO2 95.5 mmHg (75.0-100.0); BG SAMPLE SITE RIGHT RADIAL; BG TIDAL VOLUME(mL) 600 mL; BG VENT MODE VENT - A/C; BG VENT RATE 18 set
[2019-11-12] MEDS ORDERED: DOPAMINE 800MG PREMIX (DOUBLE) 250 ML IV PRN (10:00)
[2019-11-12] MEDS ORDERED: EPINEPHRINE 1 MG in SODIUM CHLORIDE 0.9% 249 ML IV PRN (10:00)
[2019-11-12] MEDS: SODIUM BICARBONATE 150 MEQ in DEXTROSE 5% WATER 1,000 ML IV SCH ×2 (10:03→21:39)
[2019-11-12] MEDS: MIDAZOLAM HCL 50 MG in DEXTROSE 5% WATER 40 ML IV PRN (11:06)
[2019-11-12] MEDS: ACETAMINOPHEN 325MG TABLET PO PRN (12:06)
[2019-11-12] MEDS ORDERED: LIDOCAINE HCL 1% 20ML VIAL (Pyxis) INJ ONE (12:41)
[2019-11-12] MEDS ORDERED: NOREPINEPHRINE 32 MG in SODIUM CHLORIDE 0.9% 468 ML IV PRN (15:00)
[2019-11-12] MEDS: PHENYLEPHRINE 80 MG in SODIUM CHLORIDE 0.9% 492 ML IV PRN (17:12)
[2019-11-12] MEDS: AMIODARONE HCL 900 MG in DEXT 5% WATER 482 ML IV PRN (21:40)
[2019-11-13] VITALS (78 sets, daily range): BP systolic 93–188; BP diastolic 44–109
[2019-11-13] MEDS: PIPERACILLIN/TAZOBACTAM 2.25 G in DEXTROSE 5% WATER 50 ML IV SCH ×4 (00:59→22:05)
[2019-11-13] MEDS: PHENYLEPHRINE 80 MG in SODIUM CHLORIDE 0.9% 492 ML IV PRN ×3 (01:31→12:24)
[2019-11-13] MEDS: IPRATROPIUM BROMIDE (0.02%) 0.5MG/2.5ML NEB HHN SCH ×3 (02:11→20:24)
[2019-11-13] MEDS: MIDAZOLAM HCL 50 MG in DEXTROSE 5% WATER 40 ML IV PRN (04:18)
[2019-11-13 05:10] LABS: HEMATOCRIT. 31.2 % (42.0-52.0); HEMOGLOBIN. 9.9 g/dL (14.0-18.0); MEAN CORPUSCULAR HEMOGLOBIN 25.9 pg (28.0-32.0); MEAN CORPUSCULAR VOLUME 81.8 fL (80.0-94.0); MEAN PLATELET VOLUME 9.3 fl (7.4-10.4); PLATELET 206 x1000/uL (130-400); RED BLOOD CELL COUNT 3.81 mill/uL (4.7-6.1); RED CELL DISTRIBUTION WIDTH 15.6 % (11.6-14.6)
[2019-11-13 05:16] LABS: CHLORIDE 91 mEq/L (98-107)
[2019-11-13 05:47] LABS: CREATINE KINASE 3212 IU/L (39-308)
[2019-11-13 06:00] LABS: PHOSPHORUS 8.5 mg/dL (2.5-4.9)
[2019-11-13 07:46] LABS: BG BASE EXCESS 2.2 mmol/L (-2.0-2.0); BG CARBOXYHEMOGLOBIN 0.3 % (0.5-1.5); BG DEOXYHEMOGLOBIN 5.2 % (0.0-5.0); BG FRACTION INSPIRED OXYGEN 50; BG HCO3 ACT 25.7 mmol/L (22.0-26.0); BG METHEMOGLOBIN 0.3 % (0.0-1.5); BG OXYGEN SATURATION 94.8 % (92.0-98.5); BG OXYHEMOGLOBIN 94.2 % (94.0-97.0); BG PCO2 35.7 mmHg (35.0-45.0); BG PH 7.475 (7.350-7.450); BG SAMPLE SITE RIGHT RADIAL; BG TIDAL VOLUME(mL) 600 mL; BG TOTAL HEMOGLOBIN 10.1 g/dL (12.0-18.0); BG VENT MODE VENT - A/C; BG VENT RATE 22 set
[2019-11-13] MEDS: SUCRALFATE 1G TABLET PO SCH ×4 (08:02→21:00)
[2019-11-13] MEDS: PANTOPRAZOLE SODIUM 40 MG/VIAL IV SCH (08:02)
[2019-11-13] MEDS ORDERED: CALCIUM GLUCONATE 1,000 MG in DEXT 5% WATER 90 ML IV SCH (09:00)
[2019-11-13 13:07] LABS: BG CARBOXYHEMOGLOBIN 0.3 % (0.5-1.5); BG DEOXYHEMOGLOBIN 2.8 % (0.0-5.0); BG HCO3 ACT 28.2 mmol/L (22.0-26.0); BG METHEMOGLOBIN 0.5 % (0.0-1.5); BG OXYGEN SATURATION 97.2 % (92.0-98.5); BG OXYHEMOGLOBIN 96.4 % (94.0-97.0); BG PCO2 36.1 mmHg (35.0-45.0); BG PO2 104.8 mmHg (75.0-100.0); BG SAMPLE SITE RIGHT RADIAL; BG TIDAL VOLUME(mL) 600 mL; BG TOTAL HEMOGLOBIN 10.9 g/dL (12.0-18.0); BG VENT MODE VENT - A/C; BG VENT RATE 22 set
[2019-11-13 14:21] LABS: NUCLEATED RED BLOOD CELLS 3 /100 WBC; PLATELET ESTIMATE NORMAL
[2019-11-13] MEDS: METOCLOPRAMIDE HCL 10MG/2ML VIAL IV SCH (17:00)
[2019-11-13] MEDS: CALCIUM GLUCONATE 1,000 MG in DEXT 5% WATER 90 ML IV SCH (22:07)
[2019-11-14] VITALS (73 sets, daily range): BP systolic 90–182; BP diastolic 53–137
[2019-11-14] MEDS: METOCLOPRAMIDE HCL 10MG/2ML VIAL IV SCH ×4 (00:45→19:02)
[2019-11-14] MEDS: IPRATROPIUM BROMIDE (0.02%) 0.5MG/2.5ML NEB HHN SCH ×4 (02:08→20:30)
[2019-11-14] MEDS: PIPERACILLIN/TAZOBACTAM 2.25 G in DEXTROSE 5% WATER 50 ML IV SCH ×3 (05:04→23:03)
[2019-11-14 05:51] LABS: HEMATOCRIT. 30.3 % (42.0-52.0); HEMOGLOBIN. 9.7 g/dL (14.0-18.0); MEAN CORPUSCULAR HEMOGLOBIN 26.1 pg (28.0-32.0); MEAN CORPUSCULAR VOLUME 81.7 fL (80.0-94.0); MEAN PLATELET VOLUME 8.9 fl (7.4-10.4); PLATELET 161 x1000/uL (130-400); RED BLOOD CELL COUNT 3.71 mill/uL (4.7-6.1); RED CELL DISTRIBUTION WIDTH 16.1 % (11.6-14.6)
[2019-11-14 06:42] LABS: CHLORIDE 96 mEq/L (98-107)
[2019-11-14 07:06] LABS: PHOSPHORUS 8.1 mg/dL (2.5-4.9)
[2019-11-14 07:19] LABS: HEPATITIS B SURFACE ANTIGEN NEGATIVE
[2019-11-14 07:49] LABS: HEPATITIS A AB IGM NEGATIVE (NEGATIVE)
[2019-11-14 08:35] LABS: BG BASE EXCESS 5.5 mmol/L (-2.0-2.0); BG CARBOXYHEMOGLOBIN 0.3 % (0.5-1.5); BG DEOXYHEMOGLOBIN 4.3 % (0.0-5.0); BG FRACTION INSPIRED OXYGEN 50; BG HCO3 ACT 29.4 mmol/L (22.0-26.0); BG METHEMOGLOBIN 0.5 % (0.0-1.5); BG OXYGEN SATURATION 95.7 % (92.0-98.5); BG OXYHEMOGLOBIN 94.9 % (94.0-97.0); BG PCO2 40.4 mmHg (35.0-45.0); BG PO2 90.8 mmHg (75.0-100.0); BG SAMPLE SITE RIGHT RADIAL; BG TIDAL VOLUME(mL) 600 mL; BG TOTAL HEMOGLOBIN 9.7 g/dL (12.0-18.0); BG VENT MODE VENT - A/C; BG VENT RATE 18 set
[2019-11-14] MEDS: CALCIUM GLUCONATE 1,000 MG in DEXT 5% WATER 90 ML IV SCH ×3 (08:42→21:30)
[2019-11-14] MEDS: SUCRALFATE 1G TABLET PO SCH ×4 (08:42→21:31)
[2019-11-14] MEDS: PANTOPRAZOLE SODIUM 40 MG/VIAL IV SCH (08:42)
[2019-11-14] MEDS ORDERED: LIDOCAINE HCL 1% 20ML VIAL (Pyxis) INJ ONE (09:17)
[2019-11-14 10:43] LABS: NUCLEATED RED BLOOD CELLS 2 /100 WBC
[2019-11-14 10:45] LABS: PLATELET ESTIMATE NORMAL
[2019-11-15] VITALS (50 sets, daily range): BP systolic 116–199; BP diastolic 62–147
[2019-11-15] MEDS: METOCLOPRAMIDE HCL 10MG/2ML VIAL IV SCH ×4 (00:42→17:07)
[2019-11-15] MEDS: IPRATROPIUM BROMIDE (0.02%) 0.5MG/2.5ML NEB HHN SCH ×4 (02:32→21:09)
[2019-11-15 05:28] LABS: HEMATOCRIT. 32.8 % (42.0-52.0); HEMOGLOBIN. 10.4 g/dL (14.0-18.0); MEAN CORPUSCULAR HEMOGLOBIN 25.9 pg (28.0-32.0); MEAN CORPUSCULAR VOLUME 81.3 fL (80.0-94.0); MEAN PLATELET VOLUME 8.8 fl (7.4-10.4); PLATELET 164 x1000/uL (130-400); RED BLOOD CELL COUNT 4.04 mill/uL (4.7-6.1); RED CELL DISTRIBUTION WIDTH 16.2 % (11.6-14.6)
[2019-11-15 05:44] LABS: PHOSPHORUS 7.8 mg/dL (2.5-4.9)
[2019-11-15] MEDS: PIPERACILLIN/TAZOBACTAM 2.25 G in DEXTROSE 5% WATER 50 ML IV SCH ×3 (05:53→21:10)
[2019-11-15] MEDS: CALCIUM GLUCONATE 1,000 MG in DEXT 5% WATER 90 ML IV SCH ×3 (05:53→21:10)
[2019-11-15] MEDS: PANTOPRAZOLE SODIUM 40 MG/VIAL IV SCH (08:12)
[2019-11-15] MEDS: SUCRALFATE 1G TABLET PO SCH ×4 (08:12→21:10)
[2019-11-15 09:52] LABS: BG BASE EXCESS -3.4 mmol/L (-2.0-2.0); BG CARBOXYHEMOGLOBIN 0.3 % (0.5-1.5); BG DEOXYHEMOGLOBIN 6.4 % (0.0-5.0); BG FRACTION INSPIRED OXYGEN 50; BG HCO3 ACT 19.4 mmol/L (22.0-26.0); BG METHEMOGLOBIN 0.5 % (0.0-1.5); BG OXYGEN SATURATION 93.5 % (92.0-98.5); BG OXYHEMOGLOBIN 92.8 % (94.0-97.0); BG PCO2 27.1 mmHg (35.0-45.0); BG PH 7.472 (7.350-7.450); BG PO2 78.9 mmHg (75.0-100.0); BG SAMPLE SITE RIGHT RADIAL; BG TIDAL VOLUME(mL) 600 mL; BG TOTAL HEMOGLOBIN 9.5 g/dL (12.0-18.0); BG VENT MODE VENT - A/C; BG VENT RATE 18 set
[2019-11-15 10:18] LABS: PLATELET ESTIMATE NORMAL
[2019-11-15] MEDS ORDERED: CALCITRIOL 1MCG/ML AMP IV SCH (12:00)
[2019-11-15] MEDS ORDERED: DILTIAZEM HCL 5MG/ML 5ML VIAL IV PRN ×2 (12:45→19:00)
[2019-11-15] MEDS: DILTIAZEM HCL 60MG TABLET PO SCH ×2 (13:19→21:11)
[2019-11-15 15:09] LABS: ANTI-MYELOPEROXIDASE AB < 9.0 U/mL (0.0-9.0); ANTI-PROTEINASE 3 ABS < 3.5 U/mL (0.0-3.5)
[2019-11-15] MEDS: DILTIAZEM HCL 5MG/ML 5ML VIAL IV PRN (20:40)
[2019-11-15] MEDS: ENALAPRIL 1.25MG/ML VIAL 1ML IV PRN (22:52)
[2019-11-16] VITALS (58 sets, daily range): BP systolic 109–192; BP diastolic 59–144
[2019-11-16] MEDS: CLONIDINE 0.2MG TABLET PO PRN ×2 (00:11→02:27)
[2019-11-16] MEDS: IPRATROPIUM BROMIDE (0.02%) 0.5MG/2.5ML NEB HHN SCH ×4 (02:10→20:38)
[2019-11-16] MEDS: MIDAZOLAM HCL 50 MG in DEXTROSE 5% WATER 40 ML IV PRN ×2 (03:40→21:23)
[2019-11-16] MEDS: PIPERACILLIN/TAZOBACTAM 2.25 G in DEXTROSE 5% WATER 50 ML IV SCH ×3 (05:41→21:15)
[2019-11-16] MEDS: METOCLOPRAMIDE HCL 10MG/2ML VIAL IV SCH ×4 (05:41→18:28)
[2019-11-16] MEDS: CALCIUM GLUCONATE 1,000 MG in DEXT 5% WATER 90 ML IV SCH (05:41)
[2019-11-16] MEDS: DILTIAZEM HCL 60MG TABLET PO SCH (05:42)
[2019-11-16 06:37] LABS: HEMATOCRIT. 31.6 % (42.0-52.0); MEAN CORPUSCULAR HEMOGLOBIN 25.9 pg (28.0-32.0); MEAN CORPUSCULAR VOLUME 81.6 fL (80.0-94.0); MEAN PLATELET VOLUME 9.1 fl (7.4-10.4); PLATELET 146 x1000/uL (130-400); RED BLOOD CELL COUNT 3.87 mill/uL (4.7-6.1); RED CELL DISTRIBUTION WIDTH 16.2 % (11.6-14.6)
[2019-11-16 07:26] LABS: PHOSPHORUS 7.3 mg/dL (2.5-4.9)
[2019-11-16] MEDS: SUCRALFATE 1G TABLET PO SCH ×4 (08:06→21:15)
[2019-11-16] MEDS: PANTOPRAZOLE SODIUM 40 MG/VIAL IV SCH (08:07)
[2019-11-16 08:18] LABS: PLATELET ESTIMATE NORMAL
[2019-11-16 09:08] LABS: GLOMERULAR BASEMENT MEMB AB 2 units (0-20)
[2019-11-16 09:20] LABS: BG BASE EXCESS 0.6 mmol/L (-2.0-2.0); BG CARBOXYHEMOGLOBIN 0.3 % (0.5-1.5); BG DEOXYHEMOGLOBIN 3.6 % (0.0-5.0); BG FRACTION INSPIRED OXYGEN 50; BG HCO3 ACT 24.5 mmol/L (22.0-26.0); BG METHEMOGLOBIN 0.5 % (0.0-1.5); BG OXYGEN SATURATION 96.4 % (92.0-98.5); BG OXYHEMOGLOBIN 95.6 % (94.0-97.0); BG PCO2 36.5 mmHg (35.0-45.0); BG PH 7.445 (7.350-7.450); BG PO2 92.4 mmHg (75.0-100.0); BG SAMPLE SITE RIGHT RADIAL; BG TIDAL VOLUME(mL) 600 mL; BG TOTAL HEMOGLOBIN 10.3 g/dL (12.0-18.0); BG VENT MODE VENT - A/C; BG VENT RATE 18 set
[2019-11-16] MEDS: DILTIAZEM HCL 5MG/ML 5ML VIAL IV PRN (11:33)
[2019-11-16] MEDS ORDERED: DILTIAZEM HCL 5MG/ML 5ML VIAL IV ONE (12:00)
[2019-11-16 13:06] LABS: ATYPICAL P-ANCA <1:20 titer (Neg:<1:20); CYTOPLASMIC C-ANCA <1:20 titer (Neg:<1:20); PERINUCLEAR P-ANCA <1:20 titer (Neg:<1:20)
[2019-11-16] MEDS: DILTIAZEM HCL 125 MG in DEXT 5% WATER 100 ML IV SCH (13:41)
[2019-11-17] VITALS (91 sets, daily range): BP systolic 106–174; BP diastolic 57–108
[2019-11-17] MEDS: METOCLOPRAMIDE HCL 10MG/2ML VIAL IV SCH ×5 (01:03→23:47)
[2019-11-17] MEDS: IPRATROPIUM BROMIDE (0.02%) 0.5MG/2.5ML NEB HHN SCH ×4 (01:11→20:10)
[2019-11-17] MEDS: DILTIAZEM HCL 125 MG in DEXT 5% WATER 100 ML IV SCH ×2 (04:00→23:49)
[2019-11-17 06:20] LABS: HEMATOCRIT. 31.2 % (42.0-52.0); MEAN CORPUSCULAR HEMOGLOBIN 26.1 pg (28.0-32.0); MEAN CORPUSCULAR VOLUME 81.1 fL (80.0-94.0); MEAN PLATELET VOLUME 9.2 fl (7.4-10.4); PLATELET 130 x1000/uL (130-400); RED BLOOD CELL COUNT 3.85 mill/uL (4.7-6.1); RED CELL DISTRIBUTION WIDTH 16.2 % (11.6-14.6)
[2019-11-17 06:57] LABS: PHOSPHORUS 6.7 mg/dL (2.5-4.9)
[2019-11-17 07:43] LABS: PLATELET ESTIMATE NORMAL
[2019-11-17] MEDS: PANTOPRAZOLE SODIUM 40 MG/VIAL IV SCH (08:54)
[2019-11-17] MEDS: SUCRALFATE 1G TABLET PO SCH ×4 (08:54→21:49)
[2019-11-17] MEDS ORDERED: DILTIAZEM HCL 125 MG in DEXT 5% WATER 100 ML IV SCH (11:04)
[2019-11-17] MEDS ORDERED: BISACODYL 10MG SUPP PR NR (15:00)
[2019-11-18] VITALS (103 sets, daily range): BP systolic 117–192; BP diastolic 68–136
[2019-11-18] MEDS: ENALAPRIL 1.25MG/ML VIAL 1ML IV PRN ×3 (00:50→20:11)
[2019-11-18] MEDS: IPRATROPIUM BROMIDE (0.02%) 0.5MG/2.5ML NEB HHN SCH ×4 (01:52→20:34)
[2019-11-18] MEDS: METOCLOPRAMIDE HCL 10MG/2ML VIAL IV SCH ×3 (06:08→20:08)
[2019-11-18 06:42] LABS: HEMATOCRIT. 33.5 % (42.0-52.0); HEMOGLOBIN. 10.6 g/dL (14.0-18.0); MEAN CORPUSCULAR HEMOGLOBIN 25.4 pg (28.0-32.0); MEAN CORPUSCULAR VOLUME 79.9 fL (80.0-94.0); MEAN PLATELET VOLUME 9.1 fl (7.4-10.4); PLATELET 126 x1000/uL (130-400); RED BLOOD CELL COUNT 4.19 mill/uL (4.7-6.1); RED CELL DISTRIBUTION WIDTH 16.6 % (11.6-14.6)
[2019-11-18 06:50] LABS: CHLORIDE 99 mEq/L (98-107)
[2019-11-18 06:56] LABS: PHOSPHORUS 7.6 mg/dL (2.5-4.9)
[2019-11-18] MEDS: SUCRALFATE 1G TABLET PO SCH ×4 (08:48→20:08)
[2019-11-18] MEDS: PANTOPRAZOLE SODIUM 40 MG/VIAL IV SCH (08:48)
[2019-11-18 09:49] LABS: PLATELET ESTIMATE SLIGHTLY DECREASED
[2019-11-18] MEDS: DILTIAZEM HCL 125 MG in DEXT 5% WATER 100 ML IV SCH (10:10)
[2019-11-18] MEDS ORDERED: NA PHOS,M-B/NA PHOS,DI-BA ENEMA 118ML PR SCH (12:00)
[2019-11-18] MEDS: DILTIAZEM HCL 60MG TABLET PO SCH ×3 (12:04→22:03)
[2019-11-18] MEDS: DOCUSATE SODIUM SUGAR FREE 100MG/10ML UDC NG SCH (13:42)
[2019-11-19] VITALS (95 sets, daily range): BP systolic 122–181; BP diastolic 69–123
[2019-11-19] MEDS: METOCLOPRAMIDE HCL 10MG/2ML VIAL IV SCH ×4 (01:22→17:06)
[2019-11-19] MEDS: IPRATROPIUM BROMIDE (0.02%) 0.5MG/2.5ML NEB HHN SCH ×4 (03:22→21:04)
[2019-11-19] MEDS: DILTIAZEM HCL 60MG TABLET PO SCH ×3 (05:12→21:11)
[2019-11-19 06:27] LABS: HEMATOCRIT. 30.7 % (42.0-52.0); MEAN CORPUSCULAR VOLUME 79.7 fL (80.0-94.0); MEAN PLATELET VOLUME 9.3 fl (7.4-10.4); PLATELET 97 x1000/uL (130-400); RED BLOOD CELL COUNT 3.85 mill/uL (4.7-6.1); RED CELL DISTRIBUTION WIDTH 16.7 % (11.6-14.6)
[2019-11-19 06:29] LABS: PHOSPHORUS 6.5 mg/dL (2.5-4.9)
[2019-11-19 08:12] LABS: BG BASE EXCESS -3.2 mmol/L (-2.0-2.0); BG CARBOXYHEMOGLOBIN 0.3 % (0.5-1.5); BG FRACTION INSPIRED OXYGEN 45; BG HCO3 ACT 21.8 mmol/L (22.0-26.0); BG METHEMOGLOBIN 0.3 % (0.0-1.5); BG OXYHEMOGLOBIN 97.4 % (94.0-97.0); BG PH 7.365 (7.350-7.450); BG PO2 111.8 mmHg (75.0-100.0); BG SAMPLE SITE RIGHT RADIAL; BG TIDAL VOLUME(mL) 600 mL; BG TOTAL HEMOGLOBIN 10.5 g/dL (12.0-18.0); BG VENT MODE VENT - A/C; BG VENT RATE 16 set
[2019-11-19] MEDS: DOCUSATE SODIUM SUGAR FREE 100MG/10ML UDC NG SCH (08:42)
[2019-11-19] MEDS: PANTOPRAZOLE SODIUM 40 MG/VIAL IV SCH (08:42)
[2019-11-19] MEDS: SUCRALFATE 1G TABLET PO SCH ×4 (08:42→21:11)
[2019-11-19 09:40] LABS: PLATELET ESTIMATE DECREASED
[2019-11-19] MEDS: DILTIAZEM HCL 125 MG in DEXT 5% WATER 100 ML IV SCH (12:27)
[2019-11-19] MEDS: CLONIDINE 0.2MG TABLET PO PRN (18:22)
[2019-11-20] VITALS (83 sets, daily range): BP systolic 110–177; BP diastolic 63–105
[2019-11-20] MEDS: METOCLOPRAMIDE HCL 10MG/2ML VIAL IV SCH ×5 (00:22→23:31)
[2019-11-20] MEDS: DILTIAZEM HCL 60MG TABLET PO SCH (05:28)
[2019-11-20 05:45] LABS: BASOPHILS % 0.8 % (0.0-2.0); EOSINOPHILS % 4.1 % (0.0-5.0); HEMATOCRIT. 31.6 % (42.0-52.0); HEMOGLOBIN. 10.3 g/dL (14.0-18.0); LYMPHOCYTES % 9.7 % (20.0-50.0); MEAN CORPUSCULAR VOLUME 79.8 fL (80.0-94.0); MEAN PLATELET VOLUME 9.9 fl (7.4-10.4); NEUTROPHILS % 72.4 % (40.0-76.0); PLATELET 81 x1000/uL (130-400); RED BLOOD CELL COUNT 3.96 mill/uL (4.7-6.1); RED CELL DISTRIBUTION WIDTH 17.3 % (11.6-14.6)
[2019-11-20] MEDS: IPRATROPIUM BROMIDE (0.02%) 0.5MG/2.5ML NEB HHN SCH ×3 (08:42→20:43)
[2019-11-20] MEDS: PANTOPRAZOLE SODIUM 40 MG/VIAL IV SCH (09:09)
[2019-11-20] MEDS: SUCRALFATE 1G TABLET PO SCH ×4 (09:09→21:35)
[2019-11-20] MEDS: DOCUSATE SODIUM SUGAR FREE 100MG/10ML UDC NG SCH (09:09)
[2019-11-20 09:16] LABS: BG BASE EXCESS -4.7 mmol/L (-2.0-2.0); BG CARBOXYHEMOGLOBIN 0.5 % (0.5-1.5); BG DEOXYHEMOGLOBIN 1.4 % (0.0-5.0); BG FRACTION INSPIRED OXYGEN 40; BG HCO3 ACT 19.4 mmol/L (22.0-26.0); BG METHEMOGLOBIN 0.5 % (0.0-1.5); BG OXYGEN SATURATION 98.6 % (92.0-98.5); BG OXYHEMOGLOBIN 97.6 % (94.0-97.0); BG PCO2 32.7 mmHg (35.0-45.0); BG PH 7.392 (7.350-7.450); BG PO2 137.4 mmHg (75.0-100.0); BG PRESSURE SUPPORT 14; BG SAMPLE SITE RIGHT RADIAL; BG TIDAL VOLUME(mL) 600 mL; BG TOTAL HEMOGLOBIN 10.5 g/dL (12.0-18.0); BG VENT MODE VENT - SIMV; BG VENT RATE 10 set
[2019-11-20] MEDS: CARVEDILOL 6.25 MG TABLET NG SCH ×2 (12:44→21:36)
[2019-11-20] MEDS: DILTIAZEM HCL 90MG TABLET PO SCH ×2 (13:07→21:35)
[2019-11-21] VITALS (41 sets, daily range): BP systolic 120–167; BP diastolic 63–106
[2019-11-21] MEDS: IPRATROPIUM BROMIDE (0.02%) 0.5MG/2.5ML NEB HHN SCH ×4 (02:11→20:51)
[2019-11-21] MEDS: METOCLOPRAMIDE HCL 10MG/2ML VIAL IV SCH ×4 (05:37→23:51)
[2019-11-21] MEDS: DILTIAZEM HCL 90MG TABLET PO SCH ×3 (05:38→20:15)
[2019-11-21 05:49] LABS: BASOPHILS % 0.5 % (0.0-2.0); HEMATOCRIT. 32.1 % (42.0-52.0); HEMOGLOBIN. 10.5 g/dL (14.0-18.0); LYMPHOCYTES % 12.9 % (20.0-50.0); MEAN CORPUSCULAR HEMOGLOBIN 26.1 pg (28.0-32.0); MEAN CORPUSCULAR VOLUME 79.6 fL (80.0-94.0); MEAN PLATELET VOLUME 10.2 fl (7.4-10.4); MONOCYTES % 12.1 % (2.0-8.0); NEUTROPHILS % 70.5 % (40.0-76.0); PLATELET 72 x1000/uL (130-400); RED BLOOD CELL COUNT 4.03 mill/uL (4.7-6.1); RED CELL DISTRIBUTION WIDTH 17.5 % (11.6-14.6)
[2019-11-21 06:10] LABS: PHOSPHORUS 6.9 mg/dL (2.5-4.9)
[2019-11-21] MEDS: PANTOPRAZOLE SODIUM 40 MG/VIAL IV SCH (09:35)
[2019-11-21] MEDS: DOCUSATE SODIUM SUGAR FREE 100MG/10ML UDC NG SCH (09:35)
[2019-11-21] MEDS: SUCRALFATE 1G TABLET PO SCH ×4 (09:35→20:14)
[2019-11-21] MEDS: CARVEDILOL 6.25 MG TABLET NG SCH ×2 (09:35→20:14)
[2019-11-21] MEDS ORDERED: POTASSIUM CHLORIDE 20MEQ/PACKET PO SCH (10:45)
[2019-11-21 12:18] LABS: TOTAL IRON BINDING CAPACITY 341 ug/dL (250-450)
[2019-11-21 12:54] LABS: VITAMIN B12 SERUM > 2000.0 pg/mL (211-911)
[2019-11-22] VITALS (36 sets, daily range): BP systolic 113–183; BP diastolic 57–121
[2019-11-22] MEDS: IPRATROPIUM BROMIDE (0.02%) 0.5MG/2.5ML NEB HHN SCH ×4 (01:37→21:05)
[2019-11-22 06:14] LABS: BASOPHILS % 0.3 % (0.0-2.0); EOSINOPHILS % 1.2 % (0.0-5.0); HEMATOCRIT. 32.1 % (42.0-52.0); HEMOGLOBIN. 10.6 g/dL (14.0-18.0); LYMPHOCYTES % 7.4 % (20.0-50.0); MEAN CORPUSCULAR HEMOGLOBIN 26.2 pg (28.0-32.0); MEAN CORPUSCULAR VOLUME 79.4 fL (80.0-94.0); MEAN PLATELET VOLUME 11.1 fl (7.4-10.4); MONOCYTES % 9.8 % (2.0-8.0); NEUTROPHILS % 81.3 % (40.0-76.0); PLATELET 71 x1000/uL (130-400); RED BLOOD CELL COUNT 4.05 mill/uL (4.7-6.1); RED CELL DISTRIBUTION WIDTH 17.3 % (11.6-14.6)
[2019-11-22 06:22] LABS: CHLORIDE 108 mEq/L (98-107)
[2019-11-22] MEDS: METOCLOPRAMIDE HCL 10MG/2ML VIAL IV SCH ×3 (06:26→16:56)
[2019-11-22] MEDS: DILTIAZEM HCL 90MG TABLET PO SCH ×3 (06:28→21:16)
[2019-11-22 06:31] LABS: PHOSPHORUS 7.8 mg/dL (2.5-4.9)
[2019-11-22 06:43] LABS: BG BASE EXCESS -5.5 mmol/L (-2.0-2.0); BG CARBOXYHEMOGLOBIN 0.3 % (0.5-1.5); BG CPAP (cmH2O) 0 cm(H2O); BG DEOXYHEMOGLOBIN 2.7 % (0.0-5.0); BG HCO3 ACT 19.4 mmol/L (22.0-26.0); BG METHEMOGLOBIN 0.4 % (0.0-1.5); BG OXYGEN SATURATION 97.3 % (92.0-98.5); BG OXYHEMOGLOBIN 96.6 % (94.0-97.0); BG PCO2 35.5 mmHg (35.0-45.0); BG PH 7.355 (7.350-7.450); BG PO2 105.7 mmHg (75.0-100.0); BG SAMPLE SITE RIGHT RADIAL; BG TOTAL HEMOGLOBIN 10.8 g/dL (12.0-18.0); BG VENT MODE VENT - CPAP
[2019-11-22] MEDS: CARVEDILOL 6.25 MG TABLET NG SCH ×2 (09:27→21:16)
[2019-11-22] MEDS: DOCUSATE SODIUM SUGAR FREE 100MG/10ML UDC NG SCH (09:27)
[2019-11-22] MEDS: PANTOPRAZOLE SODIUM 40 MG/VIAL IV SCH (09:27)
[2019-11-22] MEDS: SUCRALFATE 1G TABLET PO SCH ×4 (09:27→21:16)
[2019-11-23] VITALS (31 sets, daily range): BP systolic 103–140; BP diastolic 63–85
[2019-11-23] MEDS: METOCLOPRAMIDE HCL 10MG/2ML VIAL IV SCH ×4 (00:22→18:30)
[2019-11-23] MEDS: IPRATROPIUM BROMIDE (0.02%) 0.5MG/2.5ML NEB HHN SCH ×4 (02:53→20:58)
[2019-11-23 05:40] LABS: BASOPHILS % 0.5 % (0.0-2.0); HEMOGLOBIN. 10.1 g/dL (14.0-18.0); LYMPHOCYTES % 7.8 % (20.0-50.0); MEAN CORPUSCULAR HEMOGLOBIN 25.8 pg (28.0-32.0); MEAN CORPUSCULAR VOLUME 79.2 fL (80.0-94.0); MEAN PLATELET VOLUME 11.2 fl (7.4-10.4); MONOCYTES % 8.8 % (2.0-8.0); NEUTROPHILS % 80.9 % (40.0-76.0); PLATELET 67 x1000/uL (130-400); RED BLOOD CELL COUNT 3.92 mill/uL (4.7-6.1); RED CELL DISTRIBUTION WIDTH 17.5 % (11.6-14.6)
[2019-11-23] MEDS: DILTIAZEM HCL 90MG TABLET PO SCH ×2 (06:00→06:17)
[2019-11-23 06:03] LABS: PHOSPHORUS 8.4 mg/dL (2.5-4.9)
[2019-11-23] MEDS: SUCRALFATE 1G TABLET PO SCH ×4 (07:50→21:00)
[2019-11-23] MEDS: CARVEDILOL 6.25 MG TABLET NG SCH (09:58)
[2019-11-23] MEDS: PANTOPRAZOLE SODIUM 40 MG/VIAL IV SCH (09:58)
[2019-11-23] MEDS: DOCUSATE SODIUM SUGAR FREE 100MG/10ML UDC NG SCH (09:59)
[2019-11-23] MEDS: DILTIAZEM HCL 60MG TABLET PO SCH ×2 (13:17→18:30)
[2019-11-23] MEDS: CALCIUM ACETATE 667MG CAPSULE PO SCH ×2 (14:46→18:44)
[2019-11-23] MEDS: CARVEDILOL 6.25 MG TABLET PO SCH (21:00)
[2019-11-24] VITALS (13 sets, daily range): BP systolic 93–166; BP diastolic 56–97
[2019-11-24] MEDS: METOCLOPRAMIDE HCL 10MG/2ML VIAL IV SCH ×4 (00:25→17:06)
[2019-11-24] MEDS: DILTIAZEM HCL 60MG TABLET PO SCH ×4 (00:25→17:22)
[2019-11-24] MEDS: IPRATROPIUM BROMIDE (0.02%) 0.5MG/2.5ML NEB HHN SCH ×4 (01:37→20:43)
[2019-11-24 06:49] LABS: BASOPHILS % 0.8 % (0.0-2.0); EOSINOPHILS % 1.7 % (0.0-5.0); HEMATOCRIT. 32.3 % (42.0-52.0); HEMOGLOBIN. 10.7 g/dL (14.0-18.0); LYMPHOCYTES % 7.2 % (20.0-50.0); MEAN CORPUSCULAR HEMOGLOBIN 25.9 pg (28.0-32.0); MEAN CORPUSCULAR VOLUME 78.2 fL (80.0-94.0); MEAN PLATELET VOLUME 11.4 fl (7.4-10.4); MONOCYTES % 8.9 % (2.0-8.0); NEUTROPHILS % 81.4 % (40.0-76.0); PHOSPHORUS 5.5 mg/dL (2.5-4.9); PLATELET 87 x1000/uL (130-400); RED BLOOD CELL COUNT 4.13 mill/uL (4.7-6.1); RED CELL DISTRIBUTION WIDTH 17.5 % (11.6-14.6)
[2019-11-24] MEDS: PANTOPRAZOLE 40MG DR TABLET PO SCH (06:57)
[2019-11-24] MEDS: SUCRALFATE 1G TABLET PO SCH ×4 (06:57→21:38)
[2019-11-24] MEDS: CARVEDILOL 6.25 MG TABLET PO SCH ×2 (07:58→21:38)
[2019-11-24] MEDS: DOCUSATE SODIUM SUGAR FREE 100MG/10ML UDC NG SCH (07:58)
[2019-11-24] MEDS: CALCIUM ACETATE 667MG CAPSULE PO SCH ×3 (07:59→17:22)
[2019-11-25] VITALS (13 sets, daily range): BP systolic 113–140; BP diastolic 63–92
[2019-11-25] MEDS: METOCLOPRAMIDE HCL 10MG/2ML VIAL IV SCH ×4 (01:00→18:00)
[2019-11-25] MEDS: DILTIAZEM HCL 60MG TABLET PO SCH ×4 (01:01→18:00)
[2019-11-25] MEDS: IPRATROPIUM BROMIDE (0.02%) 0.5MG/2.5ML NEB HHN SCH ×3 (01:33→20:45)
[2019-11-25] MEDS: PANTOPRAZOLE 40MG DR TABLET PO SCH (05:54)
[2019-11-25] MEDS: SUCRALFATE 1G TABLET PO SCH ×4 (05:54→22:41)
[2019-11-25 07:18] LABS: BASOPHILS % 0.3 % (0.0-2.0); EOSINOPHILS % 1.7 % (0.0-5.0); HEMATOCRIT. 30.5 % (42.0-52.0); HEMOGLOBIN. 10.1 g/dL (14.0-18.0); LYMPHOCYTES % 12.3 % (20.0-50.0); MEAN CORPUSCULAR VOLUME 78.8 fL (80.0-94.0); MONOCYTES % 8.9 % (2.0-8.0); NEUTROPHILS % 76.8 % (40.0-76.0); PLATELET 94 x1000/uL (130-400); RED BLOOD CELL COUNT 3.87 mill/uL (4.7-6.1); RED CELL DISTRIBUTION WIDTH 17.9 % (11.6-14.6)
[2019-11-25] MEDS: CALCIUM ACETATE 667MG CAPSULE PO SCH ×3 (07:20→18:00)
[2019-11-25 07:44] LABS: PHOSPHORUS 8.3 mg/dL (2.5-4.9)
[2019-11-25] MEDS: CARVEDILOL 6.25 MG TABLET PO SCH (09:00)
[2019-11-25] MEDS: CARVEDILOL 12.5MG TABLET PO SCH ×2 (09:00→22:00)
[2019-11-25] MEDS: DOCUSATE SODIUM SUGAR FREE 100MG/10ML UDC NG SCH (09:06)
[2019-11-26] VITALS (12 sets, daily range): BP systolic 118–157; BP diastolic 58–99
[2019-11-26] MEDS: IPRATROPIUM BROMIDE (0.02%) 0.5MG/2.5ML NEB HHN SCH ×4 (00:08→20:57)
[2019-11-26] MEDS: DILTIAZEM HCL 60MG TABLET PO SCH ×4 (00:18→20:33)
[2019-11-26] MEDS: METOCLOPRAMIDE HCL 10MG/2ML VIAL IV SCH ×4 (00:18→20:34)
[2019-11-26] MEDS: SUCRALFATE 1G TABLET PO SCH ×4 (06:50→21:00)
[2019-11-26] MEDS: PANTOPRAZOLE 40MG DR TABLET PO SCH (06:50)
[2019-11-26 07:11] LABS: BASOPHILS % 1.1 % (0.0-2.0); EOSINOPHILS % 2.7 % (0.0-5.0); LYMPHOCYTES % 11.7 % (20.0-50.0); MEAN CORPUSCULAR HEMOGLOBIN 26.3 pg (28.0-32.0); MEAN CORPUSCULAR VOLUME 78.7 fL (80.0-94.0); MEAN PLATELET VOLUME 11.1 fl (7.4-10.4); MONOCYTES % 8.9 % (2.0-8.0); NEUTROPHILS % 75.6 % (40.0-76.0); PLATELET 125 x1000/uL (130-400); RED BLOOD CELL COUNT 3.81 mill/uL (4.7-6.1); RED CELL DISTRIBUTION WIDTH 17.8 % (11.6-14.6)
[2019-11-26] MEDS: CALCIUM ACETATE 667MG CAPSULE PO SCH ×3 (07:20→20:33)
[2019-11-26 07:24] LABS: PHOSPHORUS 6.9 mg/dL (2.5-4.9)
[2019-11-26] MEDS: DOCUSATE SODIUM SUGAR FREE 100MG/10ML UDC NG SCH (09:00)
[2019-11-26] MEDS: CARVEDILOL 12.5MG TABLET PO SCH ×2 (09:10→21:48)
[2019-11-26] MEDS ORDERED: POTASSIUM CHLORIDE 20MEQ/PACKET PO NR (09:15)
[2019-11-26] MEDS: ONDANSETRON HCL 4MG/2ML INJ IV PRN (09:37)
[2019-11-26] MEDS: PANTOT AC/MIN OIL/PET HY-PHL OINT (AQUAPHOR) TOP SCH (13:02)
[2019-11-26] MEDS ORDERED: KCL 20MEQ/100ML PREMIX 100 ML IV NR (14:00)
[2019-11-27] VITALS (24 sets, daily range): BP systolic 104–160; BP diastolic 61–92
[2019-11-27] MEDS: DILTIAZEM HCL 60MG TABLET PO SCH ×5 (00:12→23:24)
[2019-11-27] MEDS: METOCLOPRAMIDE HCL 10MG/2ML VIAL IV SCH ×5 (00:12→23:24)
[2019-11-27] MEDS: IPRATROPIUM BROMIDE (0.02%) 0.5MG/2.5ML NEB HHN SCH ×4 (01:28→20:49)
[2019-11-27] MEDS: SUCRALFATE 1G TABLET PO SCH ×4 (06:23→21:36)
[2019-11-27] MEDS: PANTOPRAZOLE 40MG DR TABLET PO SCH (06:23)
[2019-11-27 07:34] LABS: BASOPHILS % 0.9 % (0.0-2.0); EOSINOPHILS % 1.9 % (0.0-5.0); HEMATOCRIT. 30.4 % (42.0-52.0); HEMOGLOBIN. 10.1 g/dL (14.0-18.0); LYMPHOCYTES % 8.4 % (20.0-50.0); MEAN CORPUSCULAR HEMOGLOBIN 26.4 pg (28.0-32.0); MEAN CORPUSCULAR VOLUME 79.2 fL (80.0-94.0); MONOCYTES % 7.4 % (2.0-8.0); NEUTROPHILS % 81.4 % (40.0-76.0); PLATELET 151 x1000/uL (130-400); RED BLOOD CELL COUNT 3.83 mill/uL (4.7-6.1); RED CELL DISTRIBUTION WIDTH 17.9 % (11.6-14.6)
[2019-11-27 08:28] LABS: PHOSPHORUS 6.3 mg/dL (2.5-4.9)
[2019-11-27] MEDS: CALCIUM ACETATE 667MG CAPSULE PO SCH ×3 (08:50→17:04)
[2019-11-27] MEDS: CARVEDILOL 12.5MG TABLET PO SCH ×2 (08:50→21:36)
[2019-11-27] MEDS: PANTOT AC/MIN OIL/PET HY-PHL OINT (AQUAPHOR) TOP SCH (08:50)
[2019-11-27] MEDS: DOCUSATE SODIUM SUGAR FREE 100MG/10ML UDC NG SCH (08:50)
[2019-11-27] MEDS ORDERED: SODIUM BICARBONATE 4% (2.4MEQ) 5ML VIAL IV ONE (10:15)
[2019-11-27] MEDS ORDERED: LIDOCAINE HCL 1% 20ML VIAL (Pyxis) INJ ONE (10:15)
[2019-11-27] MEDS ORDERED: FENTANYL CITRATE/PF 50MCG/ML 2ML VIAL ONE (10:35)
[2019-11-27] MEDS ORDERED: CEFAZOLIN 1000MG PREMIX 50 ML IV ONE ×2 (10:35→10:50)
[2019-11-27] MEDS ORDERED: FENTANYL CITRATE/PF 50MCG/ML 2ML VIAL IV ONE ×2 (11:00→11:05)
[2019-11-28] VITALS (12 sets, daily range): BP systolic 98–141; BP diastolic 50–93
[2019-11-28] MEDS: IPRATROPIUM BROMIDE (0.02%) 0.5MG/2.5ML NEB HHN SCH ×4 (01:21→20:09)
[2019-11-28] MEDS: DILTIAZEM HCL 60MG TABLET PO SCH ×3 (06:23→18:15)
[2019-11-28] MEDS: METOCLOPRAMIDE HCL 10MG/2ML VIAL IV SCH ×3 (06:23→18:14)
[2019-11-28] MEDS: SUCRALFATE 1G TABLET PO SCH ×4 (06:23→21:47)
[2019-11-28 07:34] LABS: BASOPHILS % 0.8 % (0.0-2.0); EOSINOPHILS % 1.3 % (0.0-5.0); HEMATOCRIT. 30.7 % (42.0-52.0); HEMOGLOBIN. 10.1 g/dL (14.0-18.0); LYMPHOCYTES % 9.2 % (20.0-50.0); MEAN CORPUSCULAR HEMOGLOBIN 26.3 pg (28.0-32.0); MEAN CORPUSCULAR VOLUME 79.7 fL (80.0-94.0); MEAN PLATELET VOLUME 10.7 fl (7.4-10.4); MONOCYTES % 8.5 % (2.0-8.0); NEUTROPHILS % 80.2 % (40.0-76.0); PLATELET 180 x1000/uL (130-400); RED BLOOD CELL COUNT 3.85 mill/uL (4.7-6.1); RED CELL DISTRIBUTION WIDTH 18.5 % (11.6-14.6)
[2019-11-28 08:02] LABS: PHOSPHORUS 6.1 mg/dL (2.5-4.9)
[2019-11-28] MEDS: CARVEDILOL 12.5MG TABLET PO SCH ×2 (08:45→21:47)
[2019-11-28] MEDS: CALCIUM ACETATE 667MG CAPSULE PO SCH ×3 (08:45→18:14)
[2019-11-28] MEDS: FAMOTIDINE 20MG TABLET PO SCH (08:45)
[2019-11-28] MEDS: DOCUSATE SODIUM SUGAR FREE 100MG/10ML UDC NG SCH (08:46)
[2019-11-28] MEDS: PANTOT AC/MIN OIL/PET HY-PHL OINT (AQUAPHOR) TOP SCH (08:46)
[2019-11-28] MEDS: ONDANSETRON HCL 4MG/2ML INJ IV PRN (16:29)
[2019-11-29] VITALS (12 sets, daily range): BP systolic 112–152; BP diastolic 68–97
[2019-11-29] MEDS: DILTIAZEM HCL 60MG TABLET PO SCH ×5 (00:43→23:47)
[2019-11-29] MEDS: METOCLOPRAMIDE HCL 10MG/2ML VIAL IV SCH ×5 (00:43→23:47)
[2019-11-29] MEDS: IPRATROPIUM BROMIDE (0.02%) 0.5MG/2.5ML NEB HHN SCH ×4 (01:17→20:39)
[2019-11-29 06:12] LABS: BASOPHILS % 1.2 % (0.0-2.0); EOSINOPHILS % 2.7 % (0.0-5.0); HEMATOCRIT. 29.5 % (42.0-52.0); HEMOGLOBIN. 10.2 g/dL (14.0-18.0); LYMPHOCYTES % 13.1 % (20.0-50.0); MEAN CORPUSCULAR HEMOGLOBIN 27.4 pg (28.0-32.0); MEAN CORPUSCULAR VOLUME 79.2 fL (80.0-94.0); MEAN PLATELET VOLUME 10.4 fl (7.4-10.4); MONOCYTES % 8.2 % (2.0-8.0); NEUTROPHILS % 74.8 % (40.0-76.0); PLATELET 200 x1000/uL (130-400); RED BLOOD CELL COUNT 3.72 mill/uL (4.7-6.1); RED CELL DISTRIBUTION WIDTH 19.3 % (11.6-14.6)
[2019-11-29] MEDS: SUCRALFATE 1G TABLET PO SCH ×4 (06:36→21:38)
[2019-11-29] MEDS: CALCIUM ACETATE 667MG CAPSULE PO SCH ×3 (07:20→17:58)
[2019-11-29] MEDS: DOCUSATE SODIUM SUGAR FREE 100MG/10ML UDC NG SCH (09:00)
[2019-11-29] MEDS: FAMOTIDINE 20MG TABLET PO SCH (09:00)
[2019-11-29] MEDS: CARVEDILOL 12.5MG TABLET PO SCH ×2 (09:00→21:39)
[2019-11-29] MEDS: PANTOT AC/MIN OIL/PET HY-PHL OINT (AQUAPHOR) TOP SCH (09:00)
[2019-11-30] VITALS (12 sets, daily range): BP systolic 120–149; BP diastolic 57–97
[2019-11-30] MEDS: IPRATROPIUM BROMIDE (0.02%) 0.5MG/2.5ML NEB HHN SCH ×2 (01:32→08:26)
[2019-11-30 05:47] LABS: BASOPHILS % 1.5 % (0.0-2.0); EOSINOPHILS % 2.5 % (0.0-5.0); HEMATOCRIT. 28.5 % (42.0-52.0); HEMOGLOBIN. 9.5 g/dL (14.0-18.0); LYMPHOCYTES % 13.1 % (20.0-50.0); MEAN CORPUSCULAR HEMOGLOBIN 26.6 pg (28.0-32.0); MEAN CORPUSCULAR VOLUME 79.3 fL (80.0-94.0); MONOCYTES % 8.3 % (2.0-8.0); NEUTROPHILS % 74.6 % (40.0-76.0); PLATELET 237 x1000/uL (130-400); RED BLOOD CELL COUNT 3.59 mill/uL (4.7-6.1); RED CELL DISTRIBUTION WIDTH 18.6 % (11.6-14.6)
[2019-11-30 06:24] LABS: PHOSPHORUS 7.5 mg/dL (2.5-4.9)
[2019-11-30] MEDS: SUCRALFATE 1G TABLET PO SCH ×4 (06:33→21:58)
[2019-11-30] MEDS: DILTIAZEM HCL 60MG TABLET PO SCH ×4 (06:34→23:47)
[2019-11-30] MEDS: METOCLOPRAMIDE HCL 10MG/2ML VIAL IV SCH ×4 (06:35→23:45)
[2019-11-30] MEDS: CALCIUM ACETATE 667MG CAPSULE PO SCH ×3 (08:21→18:00)
[2019-11-30] MEDS: PANTOT AC/MIN OIL/PET HY-PHL OINT (AQUAPHOR) TOP SCH (08:21)
[2019-11-30] MEDS: DOCUSATE SODIUM SUGAR FREE 100MG/10ML UDC NG SCH (08:21)
[2019-11-30] MEDS: CARVEDILOL 12.5MG TABLET PO SCH ×2 (08:21→21:59)
[2019-11-30] MEDS: FAMOTIDINE 20MG TABLET PO SCH (08:21)
[2019-11-30] MEDS ORDERED: IPRATROPIUM BROMIDE (0.02%) 0.5MG/2.5ML NEB HHN PRN (12:30)
[2019-12-01] VITALS (9 sets, daily range): BP systolic 109–154; BP diastolic 54–90
[2019-12-01] MEDS: METOCLOPRAMIDE HCL 10MG/2ML VIAL IV SCH ×5 (06:14→23:53)
[2019-12-01] MEDS: SUCRALFATE 1G TABLET PO SCH ×4 (06:15→21:19)
[2019-12-01] MEDS: DILTIAZEM HCL 60MG TABLET PO SCH ×4 (06:15→23:56)
[2019-12-01 07:12] LABS: BASOPHILS % 1.1 % (0.0-2.0); EOSINOPHILS % 2.7 % (0.0-5.0); HEMATOCRIT. 31.8 % (42.0-52.0); HEMOGLOBIN. 10.6 g/dL (14.0-18.0); LYMPHOCYTES % 16.8 % (20.0-50.0); MEAN CORPUSCULAR HEMOGLOBIN 26.5 pg (28.0-32.0); MEAN CORPUSCULAR VOLUME 79.9 fL (80.0-94.0); MEAN PLATELET VOLUME 9.9 fl (7.4-10.4); NEUTROPHILS % 71.4 % (40.0-76.0); PLATELET 266 x1000/uL (130-400); RED BLOOD CELL COUNT 3.98 mill/uL (4.7-6.1)
[2019-12-01 07:31] LABS: PHOSPHORUS 6.6 mg/dL (2.5-4.9)
[2019-12-01] MEDS: CALCIUM ACETATE 667MG CAPSULE PO SCH ×3 (08:27→17:20)
[2019-12-01] MEDS: CARVEDILOL 12.5MG TABLET PO SCH ×2 (08:48→21:00)
[2019-12-01] MEDS: FAMOTIDINE 20MG TABLET PO SCH (08:49)
[2019-12-01] MEDS: DOCUSATE SODIUM SUGAR FREE 100MG/10ML UDC NG SCH (08:54)
[2019-12-01] MEDS: PANTOT AC/MIN OIL/PET HY-PHL OINT (AQUAPHOR) TOP SCH (08:55)
[2019-12-02] VITALS: BP 104/66
[2019-12-02 04:00] VITALS: BP 121/77
[2019-12-02 06:25] LABS: BASOPHILS % 1.2 % (0.0-2.0); EOSINOPHILS % 3.3 % (0.0-5.0); HEMOGLOBIN. 10.5 g/dL (14.0-18.0); MEAN CORPUSCULAR HEMOGLOBIN 26.3 pg (28.0-32.0); MEAN CORPUSCULAR VOLUME 80.2 fL (80.0-94.0); MEAN PLATELET VOLUME 9.6 fl (7.4-10.4); MONOCYTES % 8.9 % (2.0-8.0); NEUTROPHILS % 66.6 % (40.0-76.0); PLATELET 304 x1000/uL (130-400); RED BLOOD CELL COUNT 3.99 mill/uL (4.7-6.1); RED CELL DISTRIBUTION WIDTH 19.9 % (11.6-14.6)
[2019-12-02] MEDS: DILTIAZEM HCL 60MG TABLET PO SCH ×4 (06:26→23:26)
[2019-12-02] MEDS: SUCRALFATE 1G TABLET PO SCH ×4 (06:26→21:11)
[2019-12-02 06:44] LABS: PHOSPHORUS 6.5 mg/dL (2.5-4.9)
[2019-12-02 08:00] VITALS: BP 123/76
[2019-12-02] MEDS: FAMOTIDINE 20MG TABLET PO SCH (09:10)
[2019-12-02] MEDS: DOCUSATE SODIUM SUGAR FREE 100MG/10ML UDC NG SCH (09:10)
[2019-12-02] MEDS: CALCIUM ACETATE 667MG CAPSULE PO SCH ×3 (09:11→18:00)
[2019-12-02] MEDS: CARVEDILOL 12.5MG TABLET PO SCH ×2 (09:11→21:15)
[2019-12-02] MEDS: PANTOT AC/MIN OIL/PET HY-PHL OINT (AQUAPHOR) TOP SCH (09:17)
[2019-12-02 12:00] VITALS: BP 129/65
[2019-12-02] MEDS: METOCLOPRAMIDE HCL 10MG/2ML VIAL IV SCH ×3 (13:10→23:26)
[2019-12-02 16:00] VITALS: BP 118/66
[2019-12-02 20:00] VITALS: BP 102/66
[2019-12-03] VITALS: BP 108/69
[2019-12-03 04:00] VITALS: BP 100/65
[2019-12-03] MEDS: DILTIAZEM HCL 60MG TABLET PO SCH (05:32)
[2019-12-03] MEDS: METOCLOPRAMIDE HCL 10MG/2ML VIAL IV SCH ×2 (05:32→11:45)
[2019-12-03] MEDS: SUCRALFATE 1G TABLET PO SCH ×2 (06:22→11:45)
[2019-12-03 07:05] LABS: BASOPHILS % 1.6 % (0.0-2.0); EOSINOPHILS % 3.8 % (0.0-5.0); HEMATOCRIT. 31.1 % (42.0-52.0); HEMOGLOBIN. 10.3 g/dL (14.0-18.0); LYMPHOCYTES % 22.7 % (20.0-50.0); MEAN CORPUSCULAR HEMOGLOBIN 26.9 pg (28.0-32.0); MEAN CORPUSCULAR VOLUME 80.8 fL (80.0-94.0); MEAN PLATELET VOLUME 9.9 fl (7.4-10.4); MONOCYTES % 10.7 % (2.0-8.0); NEUTROPHILS % 61.2 % (40.0-76.0); PLATELET 294 x1000/uL (130-400); RED BLOOD CELL COUNT 3.84 mill/uL (4.7-6.1); RED CELL DISTRIBUTION WIDTH 20.7 % (11.6-14.6)
[2019-12-03 08:26] VITALS: BP 114/70
[2019-12-03] MEDS: CALCIUM ACETATE 667MG CAPSULE PO SCH ×2 (09:02→11:45)
[2019-12-03] MEDS: CARVEDILOL 12.5MG TABLET PO SCH (09:02)
[2019-12-03] MEDS: FAMOTIDINE 20MG TABLET PO SCH (09:02)
[2019-12-03] MEDS: PANTOT AC/MIN OIL/PET HY-PHL OINT (AQUAPHOR) TOP SCH (09:03)
[2019-12-03] MEDS: ONDANSETRON HCL 4MG/2ML INJ IV PRN (09:09)
[2019-12-03] MEDS: DOCUSATE SODIUM SUGAR FREE 100MG/10ML UDC NG SCH (09:09)
[2019-12-03 11:09] VITALS: BP 97/42
[2019-12-03] MEDS: DILTIAZEM HCL 30MG TABLET PO SCH ×2 (11:15→14:22)
[2019-12-03 11:45] VITALS: BP 97/47
[2019-12-03 16:20] VITALS: BP 115/71
[2019-12-03] MEDS ORDERED: CARVEDILOL 6.25 MG TABLET PO SCH (21:00)
== END 2019-12-03 16:00 | DRG 720 ==
LOC: ER 12:14 → CVICU 17:02 → EDBEDREQSVC 17:04 → EDBEDREQ 17:05 → ENRESERV 17:12 → 3WST 11-23 20:05 → 6WST 12-02 00:27
PROVIDERS: ADMIT Internal Medicine; ATTEND Internal Medicine
PROC: 5A1955Z Respiratory Ventilation, Greater than 96 Consecutive Hours (ICD-10-PCS; principal; 2019-11-10)
PROC: 0BH17EZ Insertion of Endotracheal Airway into Trachea, Via Natural or Artificial Opening (ICD-10-PCS; 2019-11-10)
PROC: 5A12012 Performance of Cardiac Output, Single, Manual (ICD-10-PCS; 2019-11-10)
PROC: 5A2204Z Restoration of Cardiac Rhythm, Single (ICD-10-PCS; 2019-11-10)
PROC: 05HY33Z Insertion of Infusion Device into Upper Vein, Percutaneous Approach (ICD-10-PCS; 2019-11-11)
PROC: B54MZZZ Ultrasonography of Right Upper Extremity Veins (ICD-10-PCS; 2019-11-11)
PROC: 02HV33Z Insertion of Infusion Device into Superior Vena Cava, Percutaneous Approach (ICD-10-PCS; 2019-11-12)
PROC: B548ZZA Ultrasonography of Superior Vena Cava, Guidance (ICD-10-PCS; 2019-11-12)
PROC: 5A1D70Z Performance of Urinary Filtration, Intermittent, Less than 6 Hours Per Day (ICD-10-PCS; 2019-11-12)
PROC: 4A00X4Z Measurement of Central Nervous Electrical Activity, External Approach (ICD-10-PCS; 2019-11-13)
PROC: 5A1D70Z Performance of Urinary Filtration, Intermittent, Less than 6 Hours Per Day (ICD-10-PCS; 2019-11-13)
PROC: 5A1D70Z Performance of Urinary Filtration, Intermittent, Less than 6 Hours Per Day (ICD-10-PCS; 2019-11-15)
PROC: 5A1D70Z Performance of Urinary Filtration, Intermittent, Less than 6 Hours Per Day (ICD-10-PCS; 2019-11-16)
PROC: 5A1D70Z Performance of Urinary Filtration, Intermittent, Less than 6 Hours Per Day (ICD-10-PCS; 2019-11-18)
PROC: 5A1D70Z Performance of Urinary Filtration, Intermittent, Less than 6 Hours Per Day (ICD-10-PCS; 2019-11-20)
PROC: 5A1D70Z Performance of Urinary Filtration, Intermittent, Less than 6 Hours Per Day (ICD-10-PCS; 2019-11-23)
PROC: 5A1D70Z Performance of Urinary Filtration, Intermittent, Less than 6 Hours Per Day (ICD-10-PCS; 2019-11-25)
PROC: 02PY33Z Removal of Infusion Device from Great Vessel, Percutaneous Approach (ICD-10-PCS; 2019-11-27)
PROC: 02HV33Z Insertion of Infusion Device into Superior Vena Cava, Percutaneous Approach (ICD-10-PCS; 2019-11-27)
PROC: 0JH63XZ Insertion of Tunneled Vascular Access Device into Chest Subcutaneous Tissue and Fascia, Percutaneous Approach (ICD-10-PCS; 2019-11-27)
PROC: B518ZZA Fluoroscopy of Superior Vena Cava, Guidance (ICD-10-PCS; 2019-11-27)
PROC: 5A1D70Z Performance of Urinary Filtration, Intermittent, Less than 6 Hours Per Day (ICD-10-PCS; 2019-11-27)
PROC: 5A1D70Z Performance of Urinary Filtration, Intermittent, Less than 6 Hours Per Day (ICD-10-PCS; 2019-12-01)
PROC: 5A1D70Z Performance of Urinary Filtration, Intermittent, Less than 6 Hours Per Day (ICD-10-PCS; 2019-12-03)
DX: A41.9 Sepsis, unspecified organism (principal); J96.01 Acute respiratory failure with hypoxia; K72.00 Acute and subacute hepatic failure without coma; I46.9 Cardiac arrest, cause unspecified; J69.0 Pneumonitis due to inhalation of food and vomit; N17.0 Acute kidney failure with tubular necrosis; G93.1 Anoxic brain damage, not elsewhere classified; D69.6 Thrombocytopenia, unspecified; E44.1 Mild protein-calorie malnutrition; I49.01 Ventricular fibrillation; R65.21 Severe sepsis with septic shock; G93.41 Metabolic encephalopathy; I50.23 Acute on chronic systolic (congestive) heart failure; E87.6 Hypokalemia; E66.01 Morbid (severe) obesity due to excess calories; E78.5 Hyperlipidemia, unspecified; E87.1 Hypo-osmolality and hyponatremia; I44.0 Atrioventricular block, first degree; I48.0 Paroxysmal atrial fibrillation; E87.2 Acidosis; Z66 Do not resuscitate; E83.51 Hypocalcemia; E87.5 Hyperkalemia; Z68.42 Body mass index [BMI] 45.0-49.9, adult; G47.33 Obstructive sleep apnea (adult) (pediatric); I42.0 Dilated cardiomyopathy; I34.0 Nonrheumatic mitral (valve) insufficiency; D50.0 Iron deficiency anemia secondary to blood loss (chronic); J45.909 Unspecified asthma, uncomplicated; D50.9 Iron deficiency anemia, unspecified; K25.9 Gastric ulcer, unspecified as acute or chronic, without hemorrhage or perforation; K29.70 Gastritis, unspecified, without bleeding; I13.2 Hypertensive heart and chronic kidney disease with heart failure and with stage 5 chronic kidney disease, or end stage renal disease; N18.5 Chronic kidney disease, stage 5; I48.92 Unspecified atrial flutter; M62.82 Rhabdomyolysis; Z99.2 Dependence on renal dialysis; Z79.899 Other long term (current) drug therapy; Z87.01 Personal history of pneumonia (recurrent); Z78.1 Physical restraint status
CPT/HCPCS: 31500; 36415; 36558; 36589; 36600; 71045; 74018; 74176; 76937; 77001; 80048; 80053; 80076; 80305; 81003; 82140; 82248; 82270; 82375; 82550; 82607; 82746; 82805; 82962; 83520; 83540; 83550; 83605; 83735; 83880; 84100; 84450; 84460; 84478; 84484; 85025; 86160; 86256; 86705; 86706; 86709; 86803; 86850; 86900; 87070; 87340; 92610; 93005; 94002; 94003; 94640; 96374; 96375; 97116; 97162; 97166; 97530; 97535; 99152; 99153; 99291; C1725; C1750; C1752; C1769; C9113; J0282; J0330; J0610; J0636; J0690; J1642; J1940; J2250; J2370; J2405; J2543; J2704; J2765; J3010; J3475; J3480; J3490; J7040; J7050; J7060; J7070; G0500

== ENCOUNTER 2019-12-03 16:40 | Inpatient (IN) | payer MEDICAID ==
[~2019-12-03] VITALS: Ht 182.9 cm; Wt 160.3 kg
[~2019-12-03 16:40] MED LIST changes: +METO-385 MT
[2019-12-03 18:00] VITALS: BP 106/72
[2019-12-03 18:11] VITALS: BP 106/72
[2019-12-03] MEDS ORDERED: IPRATROPIUM BROMIDE (0.02%) 0.5MG/2.5ML NEB HHN PRN (18:30)
[2019-12-03] MEDS ORDERED: CALCITRIOL 1MCG/ML AMP IV SCH (18:30)
[2019-12-03] MEDS ORDERED: ONDANSETRON HCL 4MG TABLET PO PRN (18:30)
[2019-12-03] MEDS ORDERED: ACETAMINOPHEN 325MG TABLET PO PRN (18:30)
[2019-12-03 20:00] VITALS: BP 111/58
[2019-12-03] MEDS: SUCRALFATE 1G TABLET PO SCH (20:38)
[2019-12-03] MEDS ORDERED: CARVEDILOL 6.25 MG TABLET PO SCH (21:00)
[2019-12-03] MEDS: DILTIAZEM HCL 30MG TABLET PO SCH (21:19)
[2019-12-03] MEDS: METOCLOPRAMIDE 10MG/10 ML UDC PO SCH (23:35)
[2019-12-04] MEDS: METOCLOPRAMIDE 10MG/10 ML UDC PO SCH ×2 (06:00→12:00)
[2019-12-04] MEDS: DILTIAZEM HCL 30MG TABLET PO SCH (06:04)
[2019-12-04] MEDS: SUCRALFATE 1G TABLET PO SCH ×4 (06:04→21:00)
[2019-12-04 08:00] VITALS: BP 126/83
[2019-12-04] MEDS: PANTOT AC/MIN OIL/PET HY-PHL OINT (AQUAPHOR) TOP SCH (09:00)
[2019-12-04] MEDS: CALCIUM ACETATE 667MG CAPSULE PO SCH ×3 (10:36→17:00)
[2019-12-04] MEDS: DOCUSATE SODIUM 250MG CAPSULE PO SCH (10:37)
[2019-12-04] MEDS: FAMOTIDINE 20MG TABLET PO SCH (10:37)
[2019-12-04] MEDS ORDERED: BISACODYL 10MG SUPP PR PRN (17:00)
[2019-12-04] MEDS: DOCUSATE SODIUM 100MG CAPSULE PO SCH (17:00)
[2019-12-04] MEDS: METOCLOPRAMIDE HCL 10MG/2ML VIAL IV SCH ×2 (17:51→23:49)
[2019-12-04] MEDS: NA PHOS,M-B/NA PHOS,DI-BA ENEMA 118ML PR PRN (17:52)
[2019-12-04 20:00] VITALS: BP 127/77
[2019-12-04] MEDS: CARVEDILOL 6.25 MG TABLET PO SCH (21:00)
[2019-12-05] VITALS (9 sets, daily range): BP systolic 81–126; BP diastolic 55–81
[2019-12-05] MEDS: METOCLOPRAMIDE HCL 10MG/2ML VIAL IV SCH ×3 (06:00→16:07)
[2019-12-05] MEDS: SUCRALFATE 1G TABLET PO SCH ×4 (06:14→22:00)
[2019-12-05 07:10] LABS: BASOPHILS % 1.8 % (0.0-2.0); HEMATOCRIT. 32.8 % (42.0-52.0); HEMOGLOBIN. 10.8 g/dL (14.0-18.0); LYMPHOCYTES % 23.3 % (20.0-50.0); MEAN CORPUSCULAR HEMOGLOBIN 26.5 pg (28.0-32.0); MEAN CORPUSCULAR VOLUME 80.5 fL (80.0-94.0); MEAN PLATELET VOLUME 9.4 fl (7.4-10.4); MONOCYTES % 11.7 % (2.0-8.0); NEUTROPHILS % 59.2 % (40.0-76.0); PLATELET 303 x1000/uL (130-400); RED BLOOD CELL COUNT 4.08 mill/uL (4.7-6.1); RED CELL DISTRIBUTION WIDTH 21.9 % (11.6-14.6)
[2019-12-05 07:52] LABS: PHOSPHORUS 7.4 mg/dL (2.5-4.9)
[2019-12-05] MEDS: PANTOT AC/MIN OIL/PET HY-PHL OINT (AQUAPHOR) TOP SCH (09:00)
[2019-12-05] MEDS: DOCUSATE SODIUM 250MG CAPSULE PO SCH (09:00)
[2019-12-05] MEDS: DOCUSATE SODIUM 100MG CAPSULE PO SCH ×2 (09:00→16:07)
[2019-12-05] MEDS: FAMOTIDINE 20MG TABLET PO SCH (09:00)
[2019-12-05] MEDS: CARVEDILOL 6.25 MG TABLET PO SCH ×2 (09:00→22:00)
[2019-12-05] MEDS: CALCIUM ACETATE 667MG CAPSULE PO SCH ×3 (09:00→16:07)
[2019-12-05] MEDS ORDERED: MIDODRINE HCL 2.5MG TABLET PO SCH (13:15)
[2019-12-05] MEDS: CALCITRIOL 0.25MCG CAPSULE PO SCH (14:30)
[2019-12-05] MEDS: ONDANSETRON HCL 4MG/2ML INJ IV PRN (22:13)
[2019-12-06] MEDS: SUCRALFATE 1G TABLET PO SCH ×4 (06:30→21:00)
[2019-12-06] MEDS: METOCLOPRAMIDE HCL 10MG/2ML VIAL IV SCH ×4 (06:32→17:19)
[2019-12-06 08:00] VITALS: BP 93/56
[2019-12-06] MEDS: DOCUSATE SODIUM 100MG CAPSULE PO SCH ×2 (08:49→17:00)
[2019-12-06] MEDS: CALCIUM ACETATE 667MG CAPSULE PO SCH ×3 (08:49→17:00)
[2019-12-06] MEDS: FAMOTIDINE 20MG TABLET PO SCH (08:49)
[2019-12-06] MEDS: DOCUSATE SODIUM 250MG CAPSULE PO SCH (08:49)
[2019-12-06] MEDS: CARVEDILOL 6.25 MG TABLET PO SCH (08:49)
[2019-12-06] MEDS: PANTOT AC/MIN OIL/PET HY-PHL OINT (AQUAPHOR) TOP SCH (08:52)
[2019-12-06 20:00] VITALS: BP 123/74
[2019-12-06 21:00] VITALS: BP 120/70
[2019-12-06] MEDS: CARVEDILOL 3.125 MG TABLET PO SCH (21:52)
[2019-12-07] MEDS: METOCLOPRAMIDE HCL 10MG/2ML VIAL IV SCH ×3 (00:19→13:33)
[2019-12-07] MEDS: SUCRALFATE 1G TABLET PO SCH ×4 (05:32→21:00)
[2019-12-07 08:18] VITALS: BP 121/90
[2019-12-07] MEDS: DOCUSATE SODIUM 100MG CAPSULE PO SCH ×2 (09:00→09:29)
[2019-12-07] MEDS: FAMOTIDINE 20MG TABLET PO SCH ×2 (09:00→09:30)
[2019-12-07] MEDS: CALCIUM ACETATE 667MG CAPSULE PO SCH ×3 (09:00→16:57)
[2019-12-07] MEDS: CARVEDILOL 3.125 MG TABLET PO SCH ×3 (09:00→22:08)
[2019-12-07] MEDS: PANTOT AC/MIN OIL/PET HY-PHL OINT (AQUAPHOR) TOP SCH (09:20)
[2019-12-07] MEDS: ONDANSETRON HCL 4MG/2ML INJ IV PRN (09:35)
[2019-12-07] MEDS: BISACODYL 5MG TABLET PO PRN (16:52)
[2019-12-07] MEDS ORDERED: GUAIFENESIN 200MG/10ML SUGAR FREE UDC PO PRN (19:00)
[2019-12-07 20:00] VITALS: BP 131/78
[2019-12-08] MEDS: SUCRALFATE 1G TABLET PO SCH ×4 (05:35→21:00)
[2019-12-08 06:33] LABS: BASOPHILS % 1.9 % (0.0-2.0); EOSINOPHILS % 6.8 % (0.0-5.0); HEMATOCRIT. 31.6 % (42.0-52.0); HEMOGLOBIN. 10.4 g/dL (14.0-18.0); LYMPHOCYTES % 27.1 % (20.0-50.0); MEAN CORPUSCULAR HEMOGLOBIN 26.7 pg (28.0-32.0); MEAN PLATELET VOLUME 9.3 fl (7.4-10.4); MONOCYTES % 12.5 % (2.0-8.0); NEUTROPHILS % 51.7 % (40.0-76.0); PLATELET 210 x1000/uL (130-400); RED CELL DISTRIBUTION WIDTH 22.4 % (11.6-14.6)
[2019-12-08 06:47] LABS: PHOSPHORUS 5.7 mg/dL (2.5-4.9)
[2019-12-08 07:54] VITALS: BP 128/90
[2019-12-08] MEDS: BISACODYL 5MG TABLET PO PRN (08:57)
[2019-12-08] MEDS: FAMOTIDINE 20MG TABLET PO SCH (08:57)
[2019-12-08] MEDS: CALCITRIOL 0.25MCG CAPSULE PO SCH (08:57)
[2019-12-08] MEDS: CARVEDILOL 3.125 MG TABLET PO SCH ×2 (08:57→22:00)
[2019-12-08] MEDS: PANTOT AC/MIN OIL/PET HY-PHL OINT (AQUAPHOR) TOP SCH (08:58)
[2019-12-08] MEDS: CALCIUM ACETATE 667MG CAPSULE PO SCH ×3 (08:59→16:45)
[2019-12-08 20:00] VITALS: BP 119/64
[2019-12-09] MEDS: SUCRALFATE 1G TABLET PO SCH ×2 (06:25→11:15)
[2019-12-09 08:29] VITALS: BP 121/91
[2019-12-09] MEDS: CARVEDILOL 3.125 MG TABLET PO SCH ×2 (08:35→20:25)
[2019-12-09] MEDS: FAMOTIDINE 20MG TABLET PO SCH (09:00)
[2019-12-09] MEDS: PANTOT AC/MIN OIL/PET HY-PHL OINT (AQUAPHOR) TOP SCH (09:00)
[2019-12-09] MEDS: CALCIUM ACETATE 667MG CAPSULE PO SCH ×3 (09:00→17:00)
[2019-12-09] MEDS ORDERED: DOCUSATE SODIUM 100MG CAPSULE PO SCH (10:30)
[2019-12-09] MEDS: NA PHOS,M-B/NA PHOS,DI-BA ENEMA 118ML PR PRN (12:53)
[2019-12-09] MEDS: DOCUSATE SODIUM SUGAR FREE 100MG/10ML UDC NG SCH (14:33)
[2019-12-09] MEDS ORDERED: HEPARIN SODIUM 1,000 UNIT/1ML VIAL IV NR (19:00)
[2019-12-09 20:00] VITALS: BP 121/76
[2019-12-09] MEDS: SUCRALFATE 1 G/10 ML UDC PO SCH (20:24)
[2019-12-09] MEDS: LACTULOSE 20G/30ML UDC PO SCH (22:00)
[2019-12-09] MEDS: METOCLOPRAMIDE HCL 5MG TABLET PO SCH (22:00)
[2019-12-10 05:31] LABS: PHOSPHORUS 4.7 mg/dL (2.5-4.9)
[2019-12-10] MEDS: LACTULOSE 20G/30ML UDC PO SCH ×3 (05:34→21:09)
[2019-12-10] MEDS: METOCLOPRAMIDE HCL 5MG TABLET PO SCH (05:34)
[2019-12-10] MEDS: SUCRALFATE 1 G/10 ML UDC PO SCH ×4 (05:35→21:00)
[2019-12-10 06:24] LABS: BASOPHILS % 1.6 % (0.0-2.0); HEMATOCRIT. 33.1 % (42.0-52.0); HEMOGLOBIN. 10.9 g/dL (14.0-18.0); LYMPHOCYTES % 20.2 % (20.0-50.0); MEAN CORPUSCULAR HEMOGLOBIN 26.8 pg (28.0-32.0); MEAN CORPUSCULAR VOLUME 81.5 fL (80.0-94.0); MEAN PLATELET VOLUME 9.7 fl (7.4-10.4); MONOCYTES % 11.4 % (2.0-8.0); NEUTROPHILS % 63.8 % (40.0-76.0); PLATELET 179 x1000/uL (130-400); RED BLOOD CELL COUNT 4.06 mill/uL (4.7-6.1); RED CELL DISTRIBUTION WIDTH 22.1 % (11.6-14.6)
[2019-12-10 08:00] VITALS: BP_SYST 101; BP_SYST 178; BP_DIAS 59; BP_DIAS 98
[2019-12-10] MEDS: FAMOTIDINE 20MG TABLET PO SCH (08:34)
[2019-12-10] MEDS: CALCITRIOL 0.25MCG CAPSULE PO SCH (08:34)
[2019-12-10] MEDS: DOCUSATE SODIUM SUGAR FREE 100MG/10ML UDC NG SCH ×2 (08:34→16:49)
[2019-12-10] MEDS: CALCIUM ACETATE 667MG CAPSULE PO SCH ×3 (08:34→16:49)
[2019-12-10] MEDS: CARVEDILOL 3.125 MG TABLET PO SCH ×2 (08:34→21:00)
[2019-12-10] MEDS: PANTOT AC/MIN OIL/PET HY-PHL OINT (AQUAPHOR) TOP SCH (08:37)
[2019-12-10] MEDS: ONDANSETRON HCL 4MG/2ML INJ IV PRN (10:14)
[2019-12-10] MEDS: BISACODYL 10MG SUPP PR SCH (12:00)
[2019-12-10] MEDS ORDERED: METOCLOPRAMIDE HCL 5MG TABLET JT SCH (12:30)
[2019-12-10] MEDS: PANTOPRAZOLE SODIUM 40 MG/VIAL IV SCH (12:38)
[2019-12-10] MEDS: METOCLOPRAMIDE HCL 10MG/2ML VIAL IV SCH ×2 (12:39→21:04)
[2019-12-10 20:00] VITALS: BP 127/63
[2019-12-11] MEDS: LACTULOSE 20G/30ML UDC PO SCH ×2 (05:25→13:13)
[2019-12-11] MEDS: METOCLOPRAMIDE HCL 10MG/2ML VIAL IV SCH ×3 (05:25→21:22)
[2019-12-11] MEDS: SUCRALFATE 1 G/10 ML UDC PO SCH ×4 (05:38→21:00)
[2019-12-11 06:39] LABS: BASOPHILS % 1.9 % (0.0-2.0); EOSINOPHILS % 5.4 % (0.0-5.0); HEMATOCRIT. 32.3 % (42.0-52.0); HEMOGLOBIN. 10.8 g/dL (14.0-18.0); LYMPHOCYTES % 27.5 % (20.0-50.0); MEAN CORPUSCULAR VOLUME 81.3 fL (80.0-94.0); MEAN PLATELET VOLUME 9.3 fl (7.4-10.4); NEUTROPHILS % 52.2 % (40.0-76.0); PLATELET 171 x1000/uL (130-400); RED BLOOD CELL COUNT 3.98 mill/uL (4.7-6.1)
[2019-12-11 07:21] LABS: PHOSPHORUS 5.3 mg/dL (2.5-4.9)
[2019-12-11 07:40] VITALS: BP 132/82
[2019-12-11] MEDS: DOCUSATE SODIUM SUGAR FREE 100MG/10ML UDC NG SCH ×2 (08:45→16:34)
[2019-12-11] MEDS: CALCIUM ACETATE 667MG CAPSULE PO SCH ×3 (08:46→16:34)
[2019-12-11] MEDS: BISACODYL 10MG SUPP PR SCH (08:46)
[2019-12-11] MEDS: CARVEDILOL 3.125 MG TABLET PO SCH ×2 (08:46→21:00)
[2019-12-11] MEDS: PANTOPRAZOLE SODIUM 40 MG/VIAL IV SCH (08:47)
[2019-12-11] MEDS: PANTOT AC/MIN OIL/PET HY-PHL OINT (AQUAPHOR) TOP SCH (08:47)
[2019-12-11 20:00] VITALS: BP 124/75
[2019-12-12] MEDS: SUCRALFATE 1 G/10 ML UDC PO SCH ×4 (05:57→20:21)
[2019-12-12] MEDS: METOCLOPRAMIDE HCL 10MG/2ML VIAL IV SCH ×3 (05:57→21:38)
[2019-12-12 07:36] LABS: BASOPHILS % 1.7 % (0.0-2.0); EOSINOPHILS % 7.2 % (0.0-5.0); HEMATOCRIT. 32.2 % (42.0-52.0); HEMOGLOBIN. 10.6 g/dL (14.0-18.0); LYMPHOCYTES % 29.6 % (20.0-50.0); MEAN CORPUSCULAR HEMOGLOBIN 26.6 pg (28.0-32.0); MEAN CORPUSCULAR VOLUME 81.3 fL (80.0-94.0); MEAN PLATELET VOLUME 10.1 fl (7.4-10.4); MONOCYTES % 11.6 % (2.0-8.0); NEUTROPHILS % 49.9 % (40.0-76.0); PLATELET 159 x1000/uL (130-400); RED BLOOD CELL COUNT 3.97 mill/uL (4.7-6.1); RED CELL DISTRIBUTION WIDTH 22.8 % (11.6-14.6)
[2019-12-12 08:00] VITALS: BP 117/80
[2019-12-12] MEDS: CALCIUM ACETATE 667MG CAPSULE PO SCH ×3 (09:00→17:00)
[2019-12-12] MEDS: CALCITRIOL 0.25MCG CAPSULE PO SCH (09:00)
[2019-12-12] MEDS: BISACODYL 10MG SUPP PR SCH (09:00)
[2019-12-12] MEDS: FAMOTIDINE 20MG TABLET PO SCH (09:00)
[2019-12-12] MEDS: CARVEDILOL 3.125 MG TABLET PO SCH ×2 (09:00→20:21)
[2019-12-12] MEDS: DOCUSATE SODIUM SUGAR FREE 100MG/10ML UDC NG SCH ×2 (09:00→17:00)
[2019-12-12] MEDS: PANTOT AC/MIN OIL/PET HY-PHL OINT (AQUAPHOR) TOP SCH (09:00)
[2019-12-12 20:00] VITALS: BP 117/78
[2019-12-13] MEDS: METOCLOPRAMIDE HCL 10MG/2ML VIAL IV SCH ×3 (06:28→21:32)
[2019-12-13] MEDS: BISACODYL 5MG TABLET PO PRN (06:28)
[2019-12-13] MEDS: SUCRALFATE 1 G/10 ML UDC PO SCH ×4 (06:30→21:00)
[2019-12-13 08:00] VITALS: BP 103/76
[2019-12-13] MEDS: FAMOTIDINE 20MG TABLET PO SCH (08:58)
[2019-12-13] MEDS: DOCUSATE SODIUM SUGAR FREE 100MG/10ML UDC NG SCH ×2 (08:59→17:00)
[2019-12-13] MEDS: CARVEDILOL 3.125 MG TABLET PO SCH ×2 (08:59→21:00)
[2019-12-13] MEDS: BISACODYL 10MG SUPP PR SCH (09:00)
[2019-12-13] MEDS: CALCIUM ACETATE 667MG CAPSULE PO SCH ×3 (09:00→17:00)
[2019-12-13] MEDS: PANTOT AC/MIN OIL/PET HY-PHL OINT (AQUAPHOR) TOP SCH (09:00)
[2019-12-13 15:51] LABS: BASOPHILS % 1.3 % (0.0-2.0); EOSINOPHILS % 5.2 % (0.0-5.0); HEMATOCRIT. 30.3 % (42.0-52.0); HEMOGLOBIN. 9.9 g/dL (14.0-18.0); LYMPHOCYTES % 22.9 % (20.0-50.0); MEAN CORPUSCULAR HEMOGLOBIN 26.7 pg (28.0-32.0); MEAN PLATELET VOLUME 9.8 fl (7.4-10.4); NEUTROPHILS % 59.6 % (40.0-76.0); PLATELET 152 x1000/uL (130-400); RED CELL DISTRIBUTION WIDTH 22.9 % (11.6-14.6)
[2019-12-13] MEDS ORDERED: HEPARIN SODIUM 1,000 UNIT/1ML VIAL IV SCH (16:00)
[2019-12-13 16:04] LABS: PHOSPHORUS 3.5 mg/dL (2.5-4.9)
[2019-12-13 20:00] VITALS: BP 111/75
[2019-12-14] MEDS: METOCLOPRAMIDE HCL 10MG/2ML VIAL IV SCH ×2 (05:40→13:11)
[2019-12-14] MEDS: SUCRALFATE 1 G/10 ML UDC PO SCH ×5 (06:30→21:01)
[2019-12-14 07:30] VITALS: BP 112/88
[2019-12-14] MEDS: FAMOTIDINE 20MG TABLET PO SCH (08:42)
[2019-12-14] MEDS: PANTOT AC/MIN OIL/PET HY-PHL OINT (AQUAPHOR) TOP SCH (08:43)
[2019-12-14] MEDS: DOCUSATE SODIUM SUGAR FREE 100MG/10ML UDC NG SCH ×2 (08:44→17:00)
[2019-12-14] MEDS: CALCIUM ACETATE 667MG CAPSULE PO SCH ×3 (08:44→17:00)
[2019-12-14] MEDS: CARVEDILOL 3.125 MG TABLET PO SCH ×2 (08:44→21:01)
[2019-12-14] MEDS: BISACODYL 10MG SUPP PR SCH (08:44)
[2019-12-14] MEDS: ONDANSETRON HCL 4MG/2ML INJ IV PRN (16:54)
[2019-12-14] MEDS ORDERED: CALC0.253 PO (19:59)
[2019-12-14] MEDS ORDERED: MIDO2.5T PO (19:59)
[2019-12-14] MEDS ORDERED: FAMO20TA8 PO (19:59)
[2019-12-14] MEDS ORDERED: CALC667C PO (19:59)
[2019-12-14] MEDS ORDERED: COR3 PO (19:59)
[2019-12-14 20:00] VITALS: BP 119/74
[2019-12-15] MEDS: SUCRALFATE 1 G/10 ML UDC PO SCH (06:30)
[2019-12-15 07:57] VITALS: BP 130/80
[2019-12-15] MEDS: FAMOTIDINE 20MG TABLET PO SCH (08:46)
[2019-12-15] MEDS: CARVEDILOL 3.125 MG TABLET PO SCH (08:46)
[2019-12-15] MEDS: DOCUSATE SODIUM SUGAR FREE 100MG/10ML UDC NG SCH (08:47)
[2019-12-15] MEDS: CALCIUM ACETATE 667MG CAPSULE PO SCH (08:47)
[2019-12-15] MEDS: PANTOT AC/MIN OIL/PET HY-PHL OINT (AQUAPHOR) TOP SCH (08:47)
[2019-12-15] MEDS: CALCITRIOL 0.25MCG CAPSULE PO SCH (08:47)
[2019-12-15] MEDS: BISACODYL 10MG SUPP PR SCH (08:47)
[2019-12-15 09:01] VITALS: BP 130/80
== END 2019-12-15 10:20 | disposition home health service (06) | DRG 196 ==
PROVIDERS: ADMIT Psychiatry & Neurology Neurology; ATTEND Internal Medicine
PROC: 5A1D70Z Performance of Urinary Filtration, Intermittent, Less than 6 Hours Per Day (ICD-10-PCS; 2019-12-05)
PROC: 5A1D70Z Performance of Urinary Filtration, Intermittent, Less than 6 Hours Per Day (ICD-10-PCS; 2019-12-07)
PROC: 5A1D70Z Performance of Urinary Filtration, Intermittent, Less than 6 Hours Per Day (ICD-10-PCS; principal; 2019-12-08)
PROC: 5A1D70Z Performance of Urinary Filtration, Intermittent, Less than 6 Hours Per Day (ICD-10-PCS; 2019-12-09)
DX: I49.01 Ventricular fibrillation (principal); J96.00 Acute respiratory failure, unspecified whether with hypoxia or hypercapnia; N17.0 Acute kidney failure with tubular necrosis; R65.21 Severe sepsis with septic shock; J69.0 Pneumonitis due to inhalation of food and vomit; A41.9 Sepsis, unspecified organism; G93.40 Encephalopathy, unspecified; D69.6 Thrombocytopenia, unspecified; E11.22 Type 2 diabetes mellitus with diabetic chronic kidney disease; I95.9 Hypotension, unspecified; I50.23 Acute on chronic systolic (congestive) heart failure; E44.1 Mild protein-calorie malnutrition; E66.01 Morbid (severe) obesity due to excess calories; E87.6 Hypokalemia; G47.33 Obstructive sleep apnea (adult) (pediatric); I42.0 Dilated cardiomyopathy; I48.0 Paroxysmal atrial fibrillation; I48.92 Unspecified atrial flutter; J44.9 Chronic obstructive pulmonary disease, unspecified; K25.9 Gastric ulcer, unspecified as acute or chronic, without hemorrhage or perforation; I95.1 Orthostatic hypotension; D50.9 Iron deficiency anemia, unspecified; K59.09 Other constipation; M62.82 Rhabdomyolysis; E83.51 Hypocalcemia; R00.0 Tachycardia, unspecified; I13.2 Hypertensive heart and chronic kidney disease with heart failure and with stage 5 chronic kidney disease, or end stage renal disease; N18.6 End stage renal disease; K21.9 Gastro-esophageal reflux disease without esophagitis; R74.0 Nonspecific elevation of levels of transaminase and lactic acid dehydrogenase [LDH]; Z68.42 Body mass index [BMI] 45.0-49.9, adult; Z79.899 Other long term (current) drug therapy; Z86.74 Personal history of sudden cardiac arrest; Z87.11 Personal history of peptic ulcer disease; Z99.2 Dependence on renal dialysis; Z86.73 Personal history of transient ischemic attack (TIA), and cerebral infarction without residual deficits
CPT/HCPCS: 36415; 74018; 80048; 80076; 83735; 84100; 85025; 92523; 97110; 97112; 97116; 97129; 97130; 97162; 97166; 97530; 97535; C9113; J1644; J2405; J2765; J8597; Q0162

== ENCOUNTER 2020-03-04 07:03 | Emergency (ER) | payer MEDICAID ==
[~2020-03-04] VITALS: Ht 193 cm; Wt 129.0 kg
[~2020-03-04 07:03] MED LIST changes: -APIX5TAB MT; +CALC0.253 PO; +CALC667C PO; +COR6 PO; +DILT180C66 MT; +FAMO20TA8 PO; -FURO-151 MT; +FURO40TA5 PO; -LOSA-20 PO; -METO-385 MT; +MIDO2.5T PO; -PANT40TA4 MT; -POTA20TA82 MT; -SUCR1ORA15 PO; +WARF5TAB76 PO
[2020-03-04 08:05] VITALS: BP 133/89
[2020-03-04 08:35] LABS: BASOPHILS % 0.7 % (0.0-2.0); HEMATOCRIT. 33.9 % (42.0-52.0); HEMOGLOBIN. 11.4 g/dL (14.0-18.0); LYMPHOCYTES % 20.6 % (20.0-50.0); MEAN CORPUSCULAR VOLUME 89.5 fL (80.0-94.0); MEAN PLATELET VOLUME 8.2 fl (7.4-10.4); MONOCYTES % 7.2 % (2.0-8.0); NEUTROPHILS % 65.5 % (40.0-76.0); PLATELET 251 x1000/uL (130-400); RED BLOOD CELL COUNT 3.79 mill/uL (4.7-6.1); RED CELL DISTRIBUTION WIDTH 15.7 % (11.6-14.6)
[2020-03-04 08:46] LABS: INR 1.1; PARTIAL THROMBOPLASTIN TIME 30.2 sec (23.4-31.0); PROTHROMBIN TIME 11.5 sec (9.6-11.0)
[2020-03-04] MEDS ORDERED: SODIUM BICARBONATE 4% (2.4MEQ) 5ML VIAL IV ONE (09:07)
[2020-03-04] MEDS ORDERED: LIDOCAINE HCL 1% 20ML VIAL (Pyxis) INJ ONE (09:07)
== END 2020-03-04 12:00 ==
LOC: ER 07:03
DX: N17.9 Acute kidney failure, unspecified (principal); J45.909 Unspecified asthma, uncomplicated; Z79.899 Other long term (current) drug therapy; Z45.2 Encounter for adjustment and management of vascular access device
CPT/HCPCS: 36415; 36589; 85025; 85610; 85730; 93005; 99285; J3490; 99284